=== PATIENT | female | born 1960 | race Caucasian/White ===

== ENCOUNTER 2018-12-03 12:24 | Emergency (ER) | payer BC, OTHER ==
--- OUTSIDE RECORDS SUMMARY | 2018-12-03 12:38 | XMS REPORT | Continuity of Care Document ---
:1960 External Reference #:[id number] Author Name Leena Banerjee MD Address [address] [place] [address] Care Team Providers Name Role Phone Leena Banerjee MD Care Team Information Television Anchor Unavailable Payers Date Identification Numbers Payment Provider Subscriber Effective: 2018 Policy Number: [id number] [facility] Plan Noreen Davis Group Number: [id number] [address] Group Name: [place] [address] PayID: [id number] Advance Directives Description No Information Available Problems Date Description Provider Status Onset: 02/01/2011 Moderate recurrent major depression Leena Banerjee MD Active Family History Date Family Member(s) Observation Comments Father Cancer, Pancreatic @63 Father Depression Father Ashd Father Heart Disease Mother Cancer, Uterine Mother Depression Mother Hypertension Mother Valvular Heart Disease Mother Heart Disease Second Daughter Depression Second Daughter Overdose 2007 Maternal Grandmother Cancer, Ovarian in her 90's Social History Type Date Description Comments Sex Unknown Marital Status Lives With patient lives with spouse and children Occupation works @ [employer] with [employer] Tobacco Use Start: Unknown Never Smoked Cigarettes ETOH Use Rarely consumes alcohol Tobacco Use Start: Unknown Patient has never smoked Smoking Status Reviewed: 11/27/18 Patient has never smoked Allergies, Adverse Reactions, Alerts Date Description Reaction Status Severity Comments 12/17/2004 Valium Active 10/29/2013 Lidoderm Active rash Medications Medication Date Status Form Strength Qnty SIG Indications Ordering Provider Albuterol Sulfate 11/27 Active Aerosol 108(90Bas 8gm 2 puffs J45.20 [place], HF e) use three Leena mcg/Act times a MD Abimael day as needed Desloratadine 11/27 Active Tablets 5mg 90tab take 1 J30.1 [facility] s tablet by Leena Varghese MD every day for allergy symptoms Fluconazole 11/27 Active Tablets 150mg 1tabs 1 by mouth [facility] x1 Leena Varghese MD Shingrix 05/22 Active Suspension 50mcg 2unit 2 shot Z00.00 [facility] Rec s series Leena Varghese MD Duloxetine HCL 04/[address] 60mg 90cap 1 by mouth F33.1 [facility] Part s every day Leena Varghese MD Advair Diskus 04/12 Active Aerosol 100-50mcg 60uni inhale 1 J45.20 [facility] /Dose ts puff by Leena mouth two MD Abimael times daily Nasacort Allergy 01/18 Active Aerosol 55mcg/Act 50.70 two sprays J30.1 [facility], 24HR 0ml each side Leena as needed MD Abimael Ibuprofen 10/22 Active Tablets 800mg 270ta one po 728.85 bs q8hrs with Leena food prn MD Abimael Vitamin D 02/04 Active Capsules 2000Unit 1 po qd E55.9 [facility] Leena Varghese MD Methylprednisolon 10/18 Hx TBPK 4mg 21uni dose pack R21 [place], ts , take [place] - pills as C RN MS 11/27 directed [employer] in pack, with food. Permethrin 10/18 Hx Cream 5% 120gm apply to R2 body from [place] - neck down, Doni RN MS 11/27 leave on 8 hours and xshower off,may repeat in 1 week if still itching Ventolin HFA 03/25 Hx Aerosol 108(90Bas 8gm 2 puffs J45.20 [facility] e) use three Leena - mcg/Act times a MD Abimael 11/27 day as needed Duloxetine HCL 01/[address] 30mg 30cap 1 by mouth F33.1 [facility] Part s every day Leena Varghese MD 04/12 Metaxalone 03/24 Hx Tablets 800mg 30tab take 10/18 723.1 [facility] s to 1 Leena - tablet by MD Abimael 09/15 three times a day as needed Voltaren 03/24 Hx Gel 1% 300gm apply 1 g 719.49 per joint Leena - four times MD Abimael 09/15 a day as needed Meclizine HCL 01/08 Hx Tablets 25mg 30tab /2-1 tab 386.11 s every 8 [facility] - hours, and JULIANO Marion MS 03/24 take 1- 2 tabs at night if needed for vertigo till sx are gone. No Work Rest Of 01/08 Hx 079.99 Fareed, Week Due To [facility]ness - JULIANO Marion MS 01/14 [employer] Fluconazole 09/23 Hx Tablets 150mg 1tabs 1 by mouth 616.10 [facility] x 1 Leena Varghese MD 01/08 Fluconazole 09/09 Hx Tablets 150mg 1tabs 1 by mouth [facility] x 1 Leena Varghese MD 09/23 Duloxetine HCL 03/[address] 60mg 90cap 1 by mouth F33.1 [facility] Part s every day Leena Varghese MD 01/18 Desloratadine 03/25 Hx Tablets 5mg 30tab 1 by mouth 477.8 lauri s every day Leena - as needed MD Abimael 11/22 [place] 3 03/25 Hx Capsules 1000mg 120ca 2 by mouth E78.2 lauri ps every day Leena - epa/dha MD Abimael 11/27 Cymbalta 11/[address] 60mg 90cap 1 po qd 296.32 [facility] Part s Leena Varghese MD 03/25 Lidoderm 10/22 Hx Patches 5% 30uni apply as 728.85 lauri ts directed Leena - 1-3 MD Abimael 10/29 patches x 12 hrs Metaxalone 10/22 Hx Tablets 800mg 30tab take 10/18 728.85 lauri s to 1 Leena - tablet by MD Abimael 09/23 mouth tid prn Duloxetine HCL 10/[address] 60mg 90cap 1 po qd 296.32 [facility] Part s Leena Varghese MD 11/23 Azithromycin 08/14 Hx Tablets 250mg 1Pack 2 tabs day one and 1 Leena - tab daily MD Abimael 10/22 till Ipratropium 08/08 Hx Solution 0.5-2.5(3 30uni use 1 vial 466.0 [place], [place]/Albuterol )mg/3ML ts in [facility] Sulfate - nebulizer C, RN MS 10/22 3 times daily as needed (duoneb) Ventolin HFA 08/08 Hx Aerosol 108(90Bas 1unit use tid as [place], e) s needed [place] - mcg/Act C RN MS 03/24 Naproxen 12/11 Hx Tablets 500mg 60tab take 1 729.1 s tablet by Leena - mouth MD Abimael 10/22 daily as needed with food Advair Diskus 07/27 Hx Aerosol 100-50mcg 1unit 1 puff bid [facility] /Dose s Leena Varghese MD 03/24 Cymbalta 06/[address] 60mg 30cap 1 po qd 296.32 lauri Part s Leena Varghese MD 10/22 Naproxen 04/24 Hx Tablets 500mg 60tab 1 po bid X 726.31 s 1WK Then Leena - bessie Varghese MD 08/07 Nortriptyline HCL 02/20 Hx Capsules 25mg 60cap 1-2 qhs 780.52 s prn Leena - Insomnia MD Abimael 08/07 Cymbalta 10/[address] 30mg 1 po qd 296.32 [place] Part Leena Varghese MD 06/26 Vitamin D 02/04 Hx Capsules [id number] 8caps 1 po qwk x [facility] 8 wks Leena Varghese MD 03/22 Cymbalta 02/[address] 60mg 90cap 1 po qd 296.32 [place] Part s Leena Varghese MD 10/01 Terazol 3 10/02 Hx Cream 0.8% QS Intravagin Lavonne al QHS X 3 Leena Varghese MD 03/22 Amoxicillin 09/15 Hx Tablets 875mg 20tab 1 po bid 462 s Jewell Marion RN MS 09/28 Celebrex 02/09 Hx Capsules 200mg 90cap 1 po qd 726.31 s prn Leena Varghese MD 04/27 Cymbalta 12/[address] 30mg 90cap 1 po qd 296.32 Part s Leena Varghese MD 02/01 Meloxicam 10/07 Hx Tablets 7.5mg 60tab take 1-2 726.31 [facility] s tablet by Leena - mouth MD Abimael 11/07 every day for pain Promethazine HCL 08/15 Hx Tablets 25mg 5tabs 1 po tid 009.0 prn Leena Varghese MD 10/07 cymbalta 02/[address] 60mg 90cap 1 po qd 729.1 Part s Jewell Marion RN MS 12/26 Darvocet-N 100 05/28 Hx Tablets 100 30tab 1 tabs po s q 4 hours [facility] - bessie Marion RN MS 04/27 Famvir 05/22 Hx Tablets 500mg 21tab One PO tid 053.9 s X 7 Days Jewell Marion RN MS 11/24 Sertraline HCL 05/09 Hx Tablets 50mg 90tab 1 Q hs 296.31 s Jewell Marion RN MS 08/15 Xanax 05/09 Hx Tablets 0.25mg 10tab 1 tab po 787.91 [place] s tid prn Jewell Marion RN MS 04/27 Clarinex 03/23 Hx Tablets 5mg 30tab 1 by mouth 477.8 lauri s every day Leena - as needed MD Abimael 03/25 Nasocort Nasal 03/23 Hx 1Bott 2 sprays J30.2 [place], [place] le each Leena - nostril MD Abimael 01/18 every day Advair Diskus 10/06 Hx Inhaler 100mcg;50 1unit 1 puff bid mcg s Jewell Marion RN MS 07/27 Amitriptyline 12/17 Hx Tablets 50mg 0tabs 1 po qhs Jewell Marion RN MS 12/17 Albuterol 12/17 Hx Aerosol 90mcg/Dos 17gm 2 puffs , e q4h prn Jewell Marion RN MS 08/08 Amitriptyline 12/17 Hx Tablets 25mg 90tab 2-3 tabs s hs prn Jewell Marion RN MS 12/17 Jennie 12/17 Hx Tablets 180mg 30tab 1 PO qd s Jewell Marion RN MS 03/23 Nortriptyline 12/17 Hx Capsules 25mg 90cap 1-3 tabs s hs prkathleen Marion RN MS 06/14 Medications Administered in Office Medication Date Status Form Strength Qnty SIG Indications Ordering Provider Albuterol Up Administered Injection [place], To 2.5mg & 013 Jewell Marion Ipatropium RN MS [place] Up To 0.5mg Non-Compd Depo Medrol 40 Administered Injection [place], MG 010 Leena Varghese MD Phenergan(Prom Administered Injection [place], ethazine 009 Leena Hci)Up To 50 MD Abimael MG Immunizations CPT Code Status Date Vaccine Lot # [id number] Given 11/24/2018 Typhoid Vaccine, Capsular Polysaccharide For Intramuscular Use 74623 Given 10/26/2018 Hepatitis A Vaccine, Adult Dosage 55080 Given 06/27/2018 Influenza Vac, Quadrivalent, Split, 0.5mL Dosage, [place] Use 59392 Given 05/22/2018 Pneumococcal 23 Immunization Adult Or [id number] Immunosuppressed Patient 30356 Given 10/17/2017 Influenza Vac, Quadrivalent, Split, 0.5mL Dosage, [place] Use 21191 Given 07/26/2016 Influenza Vac, Quadrivalent, Split, 0.5mL Dosage, Im Use 10641 Given 07/17/2015 Influenza Virus Vaccine,Quadrivalent,Split,Preserv [place], 0.5mL,[place] [address] Given 01/15/2014 Tdap (Adacel) Ages 7 And Above Only [id number] 48690 Given 12/29/2004 Immunization Td 7 Yrs Or Older Vital Signs Date Vital Result Comment 11/27/2018 4:32pm Weight 133.00 lb Heart Rate 76 /min BP Systolic 102 mmHg BP Diastolic 60 mmHg Height 64.5 inches 5'4.50" BMI (Body Mass Index) 22.5 kg/m2 10/18/2018 1:24pm Weight 134.25 lb Heart Rate 78 /min BP Systolic 103 mmHg BP Diastolic 62 mmHg Height 64.5 inches 5'4.50" BMI (Body Mass Index) 22.7 kg/m2 05/22/2018 4:31pm Weight 130.00 lb Heart Rate 76 /min BP Systolic 94 mmHg BP Diastolic 60 mmHg Height 64.5 inches 5'4.50" BMI (Body Mass Index) 22.0 kg/m2 11/22/2017 3:36pm Weight 132.00 lb Heart Rate 80 /min BP Systolic 104 mmHg BP Diastolic 66 mmHg Height 64.5 inches 5'4.50" BMI (Body Mass Index) 22.3 kg/m2 05/23/2017 4:04pm Weight 131.00 lb Heart Rate 76 /min BP Systolic 110 mmHg BP Diastolic 64 mmHg Height 64.5 inches 5'4.50" BMI (Body Mass Index) 22.1 kg/m2 11/22/2016 4:31pm Weight 129.00 lb Heart Rate 80 /min BP Systolic 92 mmHg BP Diastolic 62 mmHg Height 64.5 inches 5'4.50" BMI (Body Mass Index) 21.8 kg/m2 04/12/2016 4:29pm Weight 123.00 lb Heart Rate 76 /min BP Systolic 110 mmHg BP Diastolic 62 mmHg Height 64.5 inches 5'4.50" BMI (Body Mass Index) 20.8 kg/m2 01/19/2016 4:26pm Weight 121.00 lb Heart Rate 76 /min BP Systolic 112 mmHg BP Diastolic 70 mmHg Height 64.5 inches 5'4.50" BMI (Body Mass Index) 20.4 kg/m2 09/15/2015 4:24pm Weight 119.00 lb Heart Rate 68 /min BP Systolic 108 mmHg BP Diastolic 60 mmHg Height 64.5 inches 5'4.50" BMI (Body Mass Index) 20.1 kg/m2 03/24/2015 4:32pm Weight 124.00 lb Heart Rate 60 /min BP Systolic 100 mmHg BP Diastolic 62 mmHg Height 64.5 inches 5'4.50" BMI (Body Mass Index) 21.0 kg/m2 01/08/2015 8:48am Body Temperature 99.7 F Weight 125.00 lb Heart Rate 96 /min BP Systolic 114 mmHg BP Diastolic 70 mmHg Height 64.5 inches 5'4.50" BMI (Body Mass Index) 21.1 kg/m2 09/23/2014 4:51pm Weight 127.00 lb Heart Rate 64 /min BP Systolic 112 mmHg BP Diastolic 64 mmHg Height 64.5 inches 5'4.50" BMI (Body Mass Index) 21.5 kg/m2 03/25/2014 5:21pm Weight 128.00 lb Heart Rate 68 /min BP Systolic 108 mmHg BP Diastolic 60 mmHg Height 64.5 inches 5'4.50" BMI (Body Mass Index) 21.6 kg/m2 10/22/2013 4:53pm Weight 128.00 lb Heart Rate 64 /min BP Systolic 108 mmHg BP Diastolic 66 mmHg Height 64.5 inches 5'4.50" BMI (Body Mass Index) 21.6 kg/m2 08/08/2013 2:59pm Body Temperature 98.3 F Weight 127.00 lb Heart Rate 71 /min BP Systolic 112 mmHg BP Diastolic 60 mmHg 05/21/2013 4:33pm Weight 130.00 lb Heart Rate 64 /min BP Systolic 116 mmHg BP Diastolic 64 mmHg Height 64.5 inches 5'4.50" BMI (Body Mass Index) 22.0 kg/m2 01/01/2013 3:23pm Weight 126.00 lb Heart Rate 76 /min BP Systolic 94 mmHg BP Diastolic 64 mmHg Height 64.5 inches 5'4.50" BMI (Body Mass Index) 21.3 kg/m2 12/11/2012 4:33pm Weight 127.00 lb Heart Rate 68 /min BP Systolic 102 mmHg BP Diastolic 62 mmHg Height 64.5 inches 5'4.50" BMI (Body Mass Index) 21.5 kg/m2 08/07/2012 4:19pm Weight 126.00 lb Heart Rate 68 /min BP Systolic 92 mmHg BP Diastolic 60 mmHg Height 64.5 inches 5'4.50" BMI (Body Mass Index) 21.3 kg/m2 06/26/2012 4:46pm Weight 122.00 lb Heart Rate 80 /min BP Systolic 110 mmHg BP Diastolic 64 mmHg Height 64.5 inches 5'4.50" BMI (Body Mass Index) 20.6 kg/m2 04/24/2012 3:51pm Weight 125.00 lb Heart Rate 76 /min BP Systolic 90 mmHg BP Diastolic 58 mmHg Height 64.5 inches 5'4.50" BMI (Body Mass Index) 21.1 kg/m2 02/21/2012 4:04pm Weight 123.00 lb Heart Rate 68 /min BP Systolic 96 mmHg BP Diastolic 60 mmHg Height 64.5 inches 5'4.50" BMI (Body Mass Index) 20.8 kg/m2 10/01/2011 2:58pm Weight 124.00 lb Heart Rate 76 /min BP Systolic 96 mmHg BP Diastolic 58 mmHg Height 64.5 inches 5'4.50" BMI (Body Mass Index) 21.0 kg/m2 08/17/2011 10:30am Body Temperature 99.1 F Weight 123.00 lb Heart Rate 83 /min BP Systolic 105 mmHg BP Diastolic 66 mmHg 03/22/2011 6:18pm Weight 123.00 lb Heart Rate 76 /min BP Systolic 110 mmHg BP Diastolic 72 mmHg 02/01/2011 6:32pm Weight 123.00 lb Heart Rate 72 /min BP Systolic 105 mmHg BP Diastolic 75 mmHg 09/28/2010 6:07pm Weight 123.00 lb Heart Rate 60 /min BP Systolic 110 mmHg BP Diastolic 62 mmHg 09/15/2010 2:11pm Body Temperature 97.4 F Weight 125.00 lb Heart Rate 76 /min BP Systolic 96 mmHg BP Diastolic 60 mmHg 05/19/2010 2:57pm Weight 121.00 lb Heart Rate 76 /min BP Systolic 92 mmHg BP Diastolic 58 mmHg 04/27/2010 5:33pm Weight 124.00 lb Heart Rate 66 /min BP Systolic 100 mmHg BP Diastolic 57 mmHg 02/09/2010 6:46pm Weight 123.00 lb Heart Rate 64 /min BP Systolic 114 mmHg BP Diastolic 70 mmHg 11/07/2009 11:25am Weight 123.00 lb Heart Rate 84 /min BP Systolic 98 mmHg BP Diastolic 58 mmHg 10/07/2009 3:43pm Weight 123.00 lb With Boots Heart Rate 64 /min BP Systolic 96 mmHg BP Diastolic 62 mmHg 08/15/2009 3:26pm Body Temperature 98.0 F Weight 114.00 lb Heart Rate 76 /min BP Systolic 90 mmHg BP Diastolic 60 mmHg 02/04/2009 3:14pm Weight 120.00 lb Heart Rate 73 /min BP Systolic 92 mmHg BP Diastolic 58 mmHg 01/07/2009 2:36pm Weight 120.00 lb Heart Rate 68 /min BP Systolic 97 mmHg BP Diastolic 65 mmHg 05/22/2008 2:37pm Weight 115.00 lb Heart Rate 85 /min BP Systolic 89 mmHg BP Diastolic 57 mmHg Height 64.50 inches 5'4.50" BMI (Body Mass Index) 19.4 kg/m2 05/01/2008 9:07am Weight 114.00 lb Heart Rate 70 /min BP Systolic 92 mmHg BP Diastolic 63 mmHg Height 64.50 inches 5'4.50" BMI (Body Mass Index) 19.3 kg/m2 09/14/2007 8:05am Weight 118.00 lb Heart Rate 73 /min BP Systolic 88 mmHg BP Diastolic 60 mmHg Height 64.50 inches 5'4.50" BMI (Body Mass Index) 19.9 kg/m2 06/14/2007 1:59pm Weight 157.00 lb Heart Rate 57 /min BP Systolic 169 mmHg BP Diastolic 75 mmHg Respiratory Rate 20 /min Height 64.50 inches 5'4.50" BMI (Body Mass Index) 26.5 kg/m2 06/14/2007 8:06am Body Temperature 98.1 F Weight 114.00 lb Heart Rate 73 /min BP Systolic 100 mmHg BP Diastolic 63 mmHg Respiratory Rate 20 /min Height 64.50 inches 5'4.50" BMI (Body Mass Index) 19.3 kg/m2 05/09/2007 9:08am Weight 113.00 lb Heart Rate 80 /min BP Systolic 100 mmHg BP Diastolic 80 mmHg Height 64.50 inches 5'4.50" BMI (Body Mass Index) 19.1 kg/m2 03/23/2007 8:24am Weight 116.00 lb Heart Rate 80 /min BP Systolic 92 mmHg BP Diastolic 60 mmHg Height 64.50 inches 5'4.50" BMI (Body Mass Index) 19.6 kg/m2 03/03/2006 8:30am Weight 117.00 lb Heart Rate 80 /min BP Systolic 84 mmHg BP Diastolic 60 mmHg Height 64.50 inches 5'4.50" BMI (Body Mass Index) 19.8 kg/m2 12/17/2004 8:27am Weight 125.00 lb Heart Rate 88 /min BP Systolic 102 mmHg BP Diastolic 68 mmHg Urine Dipstick - Blood NEGATIVE Urine Dipstick - Protein NEGATIVE Urine Dipstick - Glucose NEGATIVE Results Test Date Facility Test Result H/L Range Note Laboratory test 10/18/2018 Done In [facility] 1 Strep NEG Negative finding Screen (In-House) CBC with Auto 10/18/2018 [facility] WBC 5.6 K/uL 4.1-11.0 Diff-fcmg RBC 4.29 M/uL 4.00-5.40 Hemoglobin 13.7 gm/dL 12.0-16.0 Hematocrit 39.7 % 36.0-47.0 MCV 92.6 fL 80.0-97.0 MCH 32.0 pg 27.0-32.0 MCHC 34.5 g/dL 32.0-36.0 RDW 12.9 % 11.5-14.5 PLT Count 260 K/ul 140-400 MPV 6.6 FL Low 7.1-10.7 Neutrophil 43.3 % 35.0-75.0 Lymphocyte 35.6 % 16.0-52.0 Monocyte 12.3 % High 2.0-10.0 Eosinophil 7.9 % High 0.0-5.0 Basophil 0.9 % 0.0-4.0 Abs Neutrophils 2.4 K/uL 2.1-8.0 Abs Lymphocytes 2.0 K/uL 0.8-5.5 Abs Monocytes 0.7 K/uL 0.1-1.0 Abs Eosinophils 0.4 K/uL 0.0-0.5 Abs Basophils 0.0 K/uL 0.0-0.3 Lyme Igm/Igg AB -RL 10/18/2018 [facility] Lyme Igm/Igg AB @ NEGATIVE (Neg) 1 Comprehensive Met 06/22/2018 [facility] Sodium 141 mmol/L 135-146 2 Panel-FCMG Potassium 4.1 mmol/L 3.5-5.2 Chloride# 102 mmol/L 97-110 3 Carbon Dioxide 31 mmol/L 24-34 Glucose 86 mg/dL 70-105 BUN 13 mg/dL 6-26 Creatinine 0.9 mg/dL 0.5-1.4 Calcium 9.3 mg/dL 8.5-10.2 Total Protein 6.4 g/dL 6.0-8.0 Albumin 4.2 g/dL 3.6-4.9 Globulin 2.2 g/dL 2.0-3.5 A/G Ratio 1.9 Ratio 1.0-2.2 Total Bilirubin 0.7 mg/dL 0.1-1.3 Alkaline Phosphatase 61 U/L 24-140 Alt 12 U/L 3-42 Ast 19 U/L 8-42 Roselyn Egfr >60 >60 4 Non Roselyn Egfr >60 >60 5 Anion Gap 8 mmol/L 5-15 6 Lipid 06/22/2018 [facility] Cholesterol 224 mg/dL High 50-199 Triglycerides 91 mg/dL 30-200 HDL 63 mg/dL 35-85 7 Chol/ HDL Ratio 3.5 ratio Low 3.7-5.6 VLDL 18 mg/dL 2-29 LDL (Calc) 143 mg/dL High 20-99 8 Laboratory test finding 06/22/2018 [facility] Vitamin D 25 Hydroxy 35 ng/mL 30-100 9 CBC With Auto Diff 08/10/2017 [facility] WBC 4.6 K/uL 4.1-11.0 RBC 4.17 M/uL 4.00-5.40 Hemoglobin 13.5 gm/dL 12.0-16.0 Hematocrit 38.7 % 36.0-47.0 MCV 93.0 fL 80.0-97.0 MCH 32.3 pg High 27.0-32.0 MCHC 34.8 g/dL 32.0-36.0 RDW 12.7 % 11.5-14.5 PLT Count 255 K/ul 140-400 MPV 6.8 FL Low 7.1-10.7 Neutrophil 51.3 % 35.0-75.0 Lymphocyte 29.6 % 16.0-52.0 Monocyte 9.3 % 2.0-10.0 Eosinophil 8.4 % High 0.0-5.0 Basophil 1.4 % 0.0-4.0 Abs Neutrophils 2.3 K/uL 2.1-8.0 Abs Lymphocytes 1.4 K/uL 0.8-5.5 Abs Monocytes 0.4 K/uL 0.1-1.0 Abs Eosinophils 0.4 K/uL 0.0-0.5 Abs Basophils 0.1 K/uL 0.0-0.3 CBC With Auto Diff 06/10/2017 [facility] WBC 4.2 K/uL 4.1-11.0 10 RBC 4.37 M/uL 4.00-5.40 Hemoglobin 13.4 gm/dL 12.0-16.0 Hematocrit 40.8 % 36.0-47.0 MCV 93.3 fL 80.0-97.0 MCH 30.7 pg 27.0-32.0 MCHC 32.9 g/dL 32.0-36.0 RDW 12.6 % 11.5-14.5 PLT Count 252 K/ul 140-400 Neutrophil 46.7 % 35.0-75.0 Lymphocyte 32.4 % 16.0-52.0 Monocyte 9.8 % 2.0-10.0 Eosinophil 10.0 % High 0.0-5.0 Basophil 1.1 % 0.0-4.0 Abs Neutrophils 2.0 K/uL Low 2.1-8.0 Abs Lymphocytes 1.4 K/uL 0.8-5.5 Abs Monocytes 0.4 K/uL 0.1-1.0 Abs Eosinophils 0.4 K/uL 0.0-0.5 Abs Basophils 0.0 K/uL 0.0-0.3 Comprehensive Met Panel-FCMG 06/10/2017 [facility] Sodium 139 mmol/L 135- 146 11 Potassium 5.1 mmol/L 3.5-5.2 Chloride# 101 mmol/L 97-110 12 Carbon Dioxide 30 mmol/L 24-34 Glucose 87 mg/dL 70-105 BUN 9 mg/dL 6-26 Creatinine 0.9 mg/dL 0.5-1.4 Calcium 9.5 mg/dL 8.5-10.2 Total Protein 6.5 g/dL 6.0-8.0 Albumin 4.3 g/dL 3.6-4.9 Globulin 2.2 g/dL 2.0-3.5 A/G Ratio 2.0 Ratio 1.0-2.2 Total Bilirubin 0.7 mg/dL 0.1-1.3 Alkaline Phosphatase 78 U/L 24-140 Alt 11 U/L 3-42 Ast 19 U/L 8-42 Roselyn Egfr >60 >60 13 Non Roselyn Egfr >60 >60 14 Anion Gap 8 mmol/L 7-16 15 Lipid 06/10/2017 [facility] Cholesterol 226 mg/dL High 50-199 Triglycerides 93 mg/dL 30-200 HDL 64 mg/dL 35-85 16 Chol/ HDL Ratio 3.6 ratio Low 3.7-5.6 VLDL 19 mg/dL 2-29 LDL (Calc) 144 mg/dL High 20-99 17 Laboratory test finding 06/10/2017 [facility] Vit D25oh 46 ng/mL 31-100 TSH 1.93 uIU/mL 0.35-4.94 Free T4 0.69 ng/dL Low 0.70-1.48 CBC With Auto Diff 04/16/2016 [facility] WBC 4.2 K/uL 4.1-11.0 RBC 4.45 M/uL 4.00-5.40 Hemoglobin 14.1 gm/dL 12.0-16.0 Hematocrit 41.0 % 36.0-47.0 MCV 92.1 fL 80.0-97.0 MCH 31.5 pg 27.0-32.0 MCHC 34.3 g/dL 32.0-36.0 RDW 12.9 % 11.5-14.5 PLT Count 257 K/ul 140-400 Neutrophil 43.6 % 35.0-75.0 Lymphocyte 35.6 % 16.0-52.0 Monocyte 11.5 % High 2.0-10.0 Eosinophil 7.3 % High 0.0-5.0 Basophil 2.0 % 0.0-4.0 Abs Neutrophils 1.9 K/uL Low 2.1-8.0 Abs Lymphocytes 1.5 K/uL 0.8-5.5 Abs Monocytes 0.5 K/uL 0.1-1.0 Abs Eosinophils 0.3 K/uL 0.0-0.5 Abs Basophils 0.1 K/uL 0.0-0.3 Comprehensive Metabolic (CMP) 04/16/2016 [facility] Sodium 139 mmol/L 134- 142 Potassium 4.7 mmol/L 3.5-5.2 Chloride 101 mmol/L 97-109 Carbon Dioxide 34 mmol/L 24-34 Glucose 103 mg/dL 70-105 BUN 13 mg/dL 6-26 Creatinine 0.9 mg/dL 0.5-1.4 Calcium 9.9 mg/dL 8.5-10.2 Total Protein 7.3 g/dL 6.0-8.0 Albumin 4.5 g/dL 3.6-4.9 Globulin 2.8 g/dL 2.0-3.5 A/G Ratio 1.6 Ratio 1.0-2.2 Total Bilirubin 0.7 mg/dL 0.1-1.3 Alkaline Phosphatase 70 U/L 24-140 Alt 11 U/L 3-42 Ast 15 U/L 8-42 Anion Gap 9 mmol/L 6-14 Roselyn Egfr >60 >60 18 Non Roselyn Egfr >60 >60 19 Lipid 04/16/2016 [facility] Cholesterol 245 mg/dL High 50-199 Triglycerides 117 mg/dL 30-200 HDL 64 mg/dL 35-85 20 Chol/ HDL Ratio 3.8 ratio 3.7-5.6 VLDL 23 mg/dL 2-29 LDL (Calc) 158 mg/dL High 20-99 21 Laboratory test finding 04/16/2016 [facility] Vit D,25 Hydroxy 47 ng/mL 31- 100 Lipid Treatment 07/25/2015 [facility] Cholesterol 204 mg/dL High 50-199 Triglycerides 108 mg/dL 30-200 HDL 52 mg/dL 35-85 22 Chol/ HDL Ratio 3.9 ratio 3.7-5.6 VLDL 22 mg/dL 2-29 LDL (Calc) 130 mg/dL High 20-99 23 Alt 9 U/L 3-42 Ast 13 U/L 8-42 CBC With Auto Diff 03/31/2015 [facility] WBC 4.3 K/uL 4.1-11.0 24 RBC 4.51 M/uL 4.00-5.40 Hemoglobin 14.2 gm/dL 12.0-16.0 Hematocrit 41.9 % 36.0-47.0 MCV 93.0 fL 80.0-97.0 MCH 31.6 pg 27.0-32.0 MCHC 33.9 g/dL 32.0-36.0 RDW 12.4 % 11.5-14.5 PLT Count 256 K/ul 140-400 Neutrophil 41.6 % 35.0-75.0 Lymphocyte 40.4 % 16.0-52.0 Monocyte 12.4 % High 2.0-10.0 Eosinophil 4.2 % 0.0-5.0 Basophil 1.4 % 0.0-4.0 Abs Neutrophils 1.8 K/uL Low 2.1-8.0 Abs Lymphocytes 1.7 K/uL 0.8-5.5 Abmon 0.5 K/uL 0.1-1.0 Abs Eosinophils 0.2 K/uL 0.0-0.5 Abs Basophils 0.1 K/uL 0.0-0.3 Comprehensive Metabolic (CMP) 03/31/2015 [facility] Sodium 138 mmol/L 134- 142 Potassium 4.2 mmol/L 3.5-5.2 Chloride 102 mmol/L 97-109 Carbon Dioxide 30 mmol/L 24-34 Glucose 91 mg/dL 70-105 BUN 14 mg/dL 6-26 Creatinine 0.8 mg/dL 0.5-1.4 Calcium 9.4 mg/dL 8.5-10.2 Total Protein 7.1 g/dL 6.0-8.0 Albumin 4.5 g/dL 3.6-4.9 Globulin 2.6 g/dL 2.0-3.5 A/G Ratio 1.7 Ratio 1.0-2.2 Total Bilirubin 0.6 mg/dL 0.1-1.3 Alkaline Phosphatase 51 U/L 24-140 Alt 15 U/L 3-42 Ast 17 U/L 8-42 Anion Gap 10 mmol/L 6-14 Roselyn Egfr >60 >60 25 Non Roselyn Egfr >60 >60 26 Lipid 03/31/2015 [facility] Cholesterol 248 mg/dL High 50-199 Triglycerides 98 mg/dL 30-200 HDL 56 mg/dL 35-85 27 Chol/ HDL Ratio 4.4 ratio 3.7-5.6 VLDL 20 mg/dL 2-29 LDL (Calc) 172 mg/dL High 20-99 28 Laboratory test finding 03/31/2015 [facility] Vit D,25 Hydroxy 62 ng/mL 31- 100 Esr 13 mm/hr 0-20 TSH 2.69 uIU/mL 0.35-4.94 Affirm 09/23/2014 [facility] Trichomonas Vaginalis Negative Negative Gardnerella Vaginalis Negative Negative Sapna Species Negative Negative Lipid Treatment 07/04/2014 [facility] Cholesterol 234 mg/dL High 50-199 29 Triglycerides 101 mg/dL 30-200 HDL 64 mg/dL 35-85 30 Chol/ HDL Ratio 3.7 ratio 3.7-5.6 VLDL 20 mg/dL 2-29 LDL (Calc) 150 mg/dL High 20-99 31 Alt 15 U/L 3-42 Ast 19 U/L 8-42 CBC With Auto Diff 04/11/2014 [facility] WBC 5.2 K/uL 4.1-11.0 RBC 4.36 M/uL 4.00-5.40 Hemoglobin 13.7 gm/dL 12.0-16.0 Hematocrit 39.9 % 36.0-47.0 MCV 91.5 fL 80.0-97.0 MCH 31.4 pg 27.0-32.0 MCHC 34.3 g/dL 32.0-36.0 RDW 12.9 % 11.5-14.5 PLT Count 267 K/ul 140-400 Neutrophil 55.6 % 35.0-75.0 Lymphocyte 28.1 % 16.0-52.0 Monocyte 11.5 % High 2.0-10.0 Eosinophil 3.9 % 0.0-5.0 Basophil 0.9 % 0.0-4.0 Abs Neutrophils 2.9 K/uL 2.1-8.0 Abs Lymphocytes 1.5 K/uL 0.8-5.5 Abmon 0.6 K/uL 0.1-1.0 Abs Eosinophils 0.2 K/uL 0.0-0.5 Abs Basophils 0.0 K/uL 0.0-0.3 Comprehensive Metabolic (CMP) 04/11/2014 [facility] Sodium 139 mmol/L 134- 142 Potassium 4.2 mmol/L 3.5-5.2 Chloride 105 mmol/L 97-109 Carbon Dioxide 31 mmol/L 24-34 Glucose 94 mg/dL 70-105 BUN 12 mg/dL 6-26 Creatinine 0.8 mg/dL 0.5-1.4 Calcium 9.3 mg/dL 8.5-10.2 Total Protein 6.6 g/dL 6.0-8.0 Albumin 4.1 g/dL 3.6-4.9 Globulin 2.5 g/dL 2.0-3.5 A/G Ratio 1.6 Ratio 1.0-2.2 Total Bilirubin 0.6 mg/dL 0.1-1.3 Alkaline Phosphatase 51 U/L 24-140 Alt 14 U/L 3-42 Ast 19 U/L 8-42 Anion Gap 7 mmol/L 6-14 Roselyn Egfr >60 >60 32 Non Roselyn Egfr >60 >60 33 Laboratory test finding 04/11/2014 [facility] Esr 21 mm/hr High 0-20 Lipid 04/11/2014 [facility] Cholesterol 247 mg/dL High 50-199 Triglycerides 97 mg/dL 30-200 HDL 63 mg/dL 35-85 34 Chol/ HDL Ratio 3.9 ratio 3.7-5.6 VLDL 19 mg/dL 2-29 LDL (Calc) 165 mg/dL High 20-99 35 Laboratory test finding 04/11/2014 [facility] TSH 2.28 uIU/mL 0.34-5.60 Vitamin B12 804 pg/mL 180-914 Vit D,25 Hydroxy 58 ng/mL 31-100 Hepatitis C Virus Antibody Non reactive Non reactive Laboratory test 12/27/2012 [facility] Rheumatoid Factor <10.0 IU/mL 0.0- 10.0 36 finding Kristin Screen Neg Neg Laboratory test finding 12/27/2012 [facility] CCP Antibody Igg 5 37 Homocysteine 7.0 umol/L (5.0-18.0) 38 Laboratory test finding 12/15/2012 [facility] Esr 20 mm/hr 0-20 39 CPK 29 U/L 12-199 CRP (C-Reactive) 0.93 mg/dL High 0.00-0.75 CBC With Auto Diff 12/15/2012 [facility] WBC 7.1 K/uL 4.1-11.0 RBC 3.93 M/uL Low 4.00-5.40 Hemoglobin 12.3 gm/dL 12.0-16.0 Hematocrit 37.7 % 36.0-47.0 MCV 95.9 fL 80.0-97.0 MCH 31.4 pg 27.0-32.0 MCHC 32.7 g/dL 32.0-36.0 RDW 12.7 % 11.5-14.5 PLT Count 196 K/ul 140-400 Neutrophil 68.4 % 35.0-75.0 Lymphocyte 16.4 % 16.0-52.0 Monocyte 10.8 % High 2.0-10.0 Eosinophil 3.6 % 0.0-5.0 Basophil 0.8 % 0.0-4.0 Abs Neutrophils 4.8 K/uL 2.1-8.0 Abs Lymphocytes 1.2 K/uL 0.8-5.5 Abs Monocytes 0.8 K/uL 0.1-1.0 Abs Eosinophils 0.3 K/uL 0.0-0.5 Abs Basophils 0.1 K/uL 0.0-0.3 Laboratory test finding 12/15/2012 [facility] TSH 1.48 uIU/mL 0.34-5.60 Comprehensive Metabolic (CMP) 12/15/2012 [facility] Sodium 139 mmol/L 134- 142 Potassium 4.9 mmol/L 3.5-5.2 Chloride 104 mmol/L 97-109 Carbon Dioxide 32 mmol/L 24-34 Glucose 83 mg/dL 70-105 BUN 14 mg/dL 6-26 Creatinine 0.7 mg/dL 0.5-1.4 Calcium 9.1 mg/dL 8.5-10.2 Total Protein 6.4 g/dL 6.0-8.0 Albumin 4.1 g/dL 3.6-4.9 Globulin 2.3 g/dL 2.0-3.5 A/G Ratio 1.8 Ratio 1.0-2.2 Total Bilirubin 0.5 mg/dL 0.1-1.3 Alkaline Phosphatase 43 U/L 24-140 Alt 10 U/L 3-42 Ast 14 U/L 8-42 Anion Gap 8 mmol/L 6-14 Roselyn Egfr >60 >60 40 Non Roselyn Egfr >60 >60 41 Lipid 12/15/2012 [facility] Cholesterol 212 mg/dL High 50-199 Triglycerides 100 mg/dL 30-200 HDL 48 mg/dL 35-85 42 Chol/ HDL Ratio 4.4 ratio 3.7-5.6 VLDL 20 mg/dL 2-29 LDL (Calc) 144 mg/dL High 20-129 43 Non HDL Cholesterol 164 mg/dL High 20-129 44 CBC With Auto Diff 03/27/2012 [facility] WBC 4.9 K/uL 4.1-11.0 45 RBC 4.18 M/uL 4.00-5.40 Hemoglobin 13.5 gm/dL 12.0-16.0 Hematocrit 38.0 % 36.0-47.0 MCV 90.9 fL 80.0-97.0 MCH 32.4 pg High 27.0-32.0 MCHC 35.6 g/dL 32.0-36.0 RDW 12.7 % 11.5-14.5 PLT Count 233 K/ul 140-400 Neutrophil 46.0 % 35.0-75.0 Lymphocyte 32.0 % 16.0-52.0 Monocyte 13.7 % High 2.0-10.0 Eosinophil 6.9 % High 0.0-5.0 Basophil 1.4 % 0.0-4.0 Abs Neutrophils 2.2 K/uL 2.1-8.0 Abs Lymphocytes 1.6 K/uL 0.8-5.5 Abs Monocytes 0.7 K/uL 0.1-1.0 Abs Eosinophils 0.3 K/uL 0.0-0.5 Abs Basophils 0.1 K/uL 0.0-0.3 Comprehensive Metabolic (CMP) 03/27/2012 [facility] Sodium 137 mmol/L 134- 142 Potassium 5.2 mmol/L 3.5-5.2 Chloride 104 mmol/L 97-109 Carbon Dioxide 30 mmol/L 24-34 Glucose 90 mg/dL 70-105 BUN 10 mg/dL 6-26 Creatinine 0.7 mg/dL 0.5-1.4 Calcium 9.3 mg/dL 8.5-10.2 Total Protein 6.7 g/dL 6.0-8.0 Albumin 4.2 g/dL 3.6-4.9 Globulin 2.5 g/dL 2.0-3.5 A/G Ratio 1.7 Ratio 1.0-2.2 Total Bilirubin 0.6 mg/dL 0.1-1.3 Alkaline Phosphatase 53 U/L 24-140 Alt 11 U/L 3-42 Ast 14 U/L 8-42 Anion Gap 8 mmol/L 6-14 Roselyn Egfr >60 >60 46 Non Roselyn Egfr >60 >60 47 Laboratory test finding 03/27/2012 [facility] Hemoglobin A1c 5.3 % 4.1-5.9 TSH 1.73 uIU/mL 0.34-5.60 Vit D,25 Hydroxy 81 ng/mL 31-100 Lipid 03/27/2012 [facility] Cholesterol 216 mg/dL High 50-199 Triglycerides 134 mg/dL 30-200 HDL 54 mg/dL 35-85 48 Chol/ HDL Ratio 4.0 ratio 3.7-5.6 VLDL 27 mg/dL 2-29 LDL (Calc) 135 mg/dL High 20-129 49 Laboratory test finding 10/05/2011 [facility] Vit D,25 Hydroxy 55 ng/mL 31- 100 50 Laboratory test finding 04/12/2011 [facility] Vit D,25 Hydroxy 51 ng/mL 31- 100 51 CBC With Auto Diff 02/01/2011 [facility] WBC 8.3 K/uL 4.1-11.0 52 RBC 4.48 M/uL 4.00-5.40 Hemoglobin 14.5 gm/dL 12.0-16.0 Hematocrit 41.9 % 36.0-47.0 MCV 93.4 fL 80.0-97.0 MCH 32.3 pg High 27.0-32.0 MCHC 34.5 g/dL 32.0-36.0 RDW 12.5 % 11.5-14.5 PLT Count 259 K/ul 140-400 Neutrophil 57.3 % 35.0-75.0 Lymphocyte 29.0 % 16.0-52.0 Monocyte 10.1 % High 2.0-10.0 Eosinophil 3.0 % 0.0-5.0 Basophil 0.6 % 0.0-4.0 Abs Neutrophils 4.8 K/uL 2.1-8.0 Abs Lymphocytes 2.4 K/uL 0.8-5.5 Abs Monocytes 0.8 K/uL 0.1-1.0 Abs Eosinophils 0.2 K/uL 0.0-0.5 Abs Basophils 0.1 K/uL 0.0-0.3 Laboratory test finding 02/01/2011 [facility] TSH 4.25 uIU/mL 0.34-5.60 Vit D,25 Hydroxy 17 ng/mL Low 31-100 Lipid TX Panel 09/23/2010 [facility] (Do not Use) Ast 17 U/L 12-40 53 [facility] [address] [phone] Alt 15 U/L 5-45 Cholesterol 213 mg/dL High 50-199 Triglycerides 129 mg/dL 10-150 HDL 48 mg/dL 35-85 54 LDL (Calc) 139 mg/dL High 20-129 55 Chol/HDL Ratio 4.4 Ratio 3.7-5.6 56 VLDL 26 mg/dL 2-29 Lipid Panel 04/16/2010 [facility] (Do not Use) Cholesterol 238 mg/dL High 50-199 57 [facility] [place] [address] [phone] Triglycerides 112 mg/dL 10-150 HDL 57 mg/dL 35-85 58 Chol/HDL Ratio 4.2 Ratio 3.7-5.6 59 VLDL 22 mg/dL 2-29 LDL (Calc) 159 mg/dL High 20-129 60 Laboratory test 04/16/2010 [facility] (Do not Use) TSH 1.94 uIU/ml 0.34 -5.60 finding [facility] [place] [address] [phone] CMP 04/16/2010 [facility] (Do not Use) Sodium 143 mmol/L 135-144 [facility] [place] [address] [phone] Potassium 4.8 mmol/L 3.6-5.2 Chloride 106 mmol/L 97-110 Carbon Dioxide 29 mmol/L 23-32 Glucose 86 mg/dL 70-105 BUN 12 mg/dL 6-22 Creatinine 0.8 mg/dL 0.5-1.3 BUN/CR 15 Ratio Calcium 9.4 mg/dL 8.6-10.2 Total Protein 7.4 g/dL 5.8-7.8 Albumin 4.2 g/dL 3.5-4.8 Globulin 3.2 g/dL 2.0-3.5 A/G Ratio 1.3 Ratio 1.0-2.2 Total Bilirubin 1.0 mg/dL 0.3-1.2 61 Alkaline Phosphatase 60 U/L 24-140 Alt 12 U/L 5-45 Ast 20 U/L 12-40 Anion Gap 13 mmol/L 8-16 GFR Calculation > 60 mL/min 60-175 62 GFR For > 60 mL/min 60-175 63 CBC With Auto Diff 04/16/2010 [facility] (Do not Use) WBC 6.0 K/ul 4.0- 10.9 [facility] [place] [address] [phone] RBC 4.53 M/ul 4.20-5.40 Hemoglobin 14.6 GM/dl 12.5-16.0 Hematocrit 42.2 % 36.0-47.0 MCV 93.2 FL 80.0-97.0 MCH 32.2 pg High 27.0-31.0 MCHC 34.6 g/dL 32.0-36.0 RDW 13.2 % 11.5-14.5 Platelet Count 268 K/ul 140-440 Neutrophils 58.9 % 50-70 Lymphocytes 25.6 % 20-44 Monocytes 12.5 % High 2-9 Eosinophil 2.5 % 0-4 Basophil 0.5 % 0-2 Absolute Neutrophils 3.5 K/ul 2.05-7.63 Absolute Lymphocytes 1.5 K/ul 0.8-4.8 Absolute Monocytes 0.7 K/ul 0.1-1.0 Absolute Eosinophils 0.1 K/ul 0.1-0.5 Absolute Basophils 0.0 K/ul 0.0-0.3 Hematology Comment (Comm2) N/A PT With Inr -LA 04/16/2010 [facility] (Do not Use) Protime-LA 10.2 SEC 8.8-11.1 [address] [place] [address] [phone] Inr-LA 0.98 Low 2.0-3.0 65 PTT -RL 04/16/2010 [facility] (Do not Use) Aptt-LA N/A SEC 22.2-34.2 [place] [address] [phone] Aptt-LA 27.6 SEC 22.1-31.5 66 CBC With Auto Diff 01/07/2009 [facility] (Do not Use) WBC 4.9 K/ul 4.0- 10.9 [address] [place] [address] [phone] RBC 4.23 M/ul 4.20-5.40 Hemoglobin 13.4 GM/dl 12.5-16.0 Hematocrit 38.4 % 36.0-47.0 MCV 90.7 FL 80.0-97.0 MCH 31.7 pg High 27.0-31.0 MCHC 35.0 g/dL 32.0-36.0 RDW 12.9 % 11.5-14.5 Platelet Count 255 K/ul 140-440 Neutrophils 48.8 % Low 50-70 Lymphocytes 33.4 % 20-44 Monocytes 13.5 % High 2-9 Eosinophil 3.6 % 0-4 Basophil 0.7 % 0-2 Absolute Neutrophils 2.4 K/ul 2.05-7.63 Absolute Lymphocytes 1.6 K/ul 0.8-4.8 Absolute Monocytes 0.7 K/ul 0.1-1.0 Absolute Eosinophils 0.2 K/ul 0.1-0.5 Absolute Basophils 0.0 K/ul 0.0-0.3 Hematology Comment (Comm2) N/A Laboratory test finding 01/07/2009 [facility] (Do not Use) Esr 17 MM/HR 0-20 [place] [address] [phone] Kristin Screen Neg CPK 32 U/L Low 38-234 Hepatic Liver 01/07/2009 [facility] (Do not Use) Total Protein 6.8 g/dL 5.8-7.8 [place] [address] [phone] Albumin 3.9 g/dL 3.5-4.8 Total Bilirubin 0.6 mg/dL 0.3-1.2 Direct Bilirubin 0.1 mg/dL 0.0-0.5 Alkaline Phosphatase 58 U/L 24-140 Alt 13 U/L 4-45 Ast 18 U/L 12-40 Laboratory test 01/07/2009 [facility] (Do not Use) Vitamin D, 25 32 ng/mL 31-100 finding [facility] [place] [address] [phone] Rheumatoid Factor -Quant. RESULT LESS THAN <SEE NOTE> IU/mL 68 CBC With Auto Diff 06/11/2008 [facility] (Do not Use) WBC 4.7 K/ul 4.0- 10.9 [address] [place] [address] [phone] RBC 4.07 M/ul Low 4.20-5.40 Hemoglobin 13.1 GM/dl 12.5-16.0 Hematocrit 37.2 % 36.0-47.0 MCV 91.4 FL 80.0-97.0 MCH 32.2 pg High 27.0-31.0 MCHC 35.2 g/dL 32.0-36.0 RDW 13.1 % 11.5-14.5 Platelet Count 273 K/ul 140-440 Neutrophils 57.1 % 50-70 Lymphocytes 27.8 % 20-44 Monocytes 11.3 % High 2-9 Eosinophil 2.4 % 0-4 Basophil 1.4 % 0-2 Absolute Neutrophils 2.7 K/ul 2.05-7.63 Absolute Lymphocytes 1.3 K/ul 0.8-4.8 Absolute Monocytes 0.5 K/ul 0.1-1.0 Absolute Eosinophils 0.1 K/ul 0.1-0.5 Absolute Basophils 0.1 K/ul 0.0-0.3 Laboratory test 06/11/2008 [facility] (Do not Use) Vitamin D, 25 32 ng/mL 19-58 finding [facility] [place] [address] [phone] Vitamin B12 594 pg/mL 180-914 Ferritin 174.3 ng/ml 11-306 Laboratory test 06/11/2008 [facility] (Do not Use) Lyme Igm/Igg NEGATIVE (Neg) 70 finding [facility] [place] [address] [phone] Laboratory test 06/11/2008 [facility] (Do not Use) Hiv1 AB Eia-LA NEGATIVE (Neg) 71 finding [facility] [place] [address] [phone] Lipid Panel 05/07/2008 [facility] (Do not Use) Cholesterol 210 mg/dL High 50-199 [place] [address] [phone] Triglycerides 163 mg/dL High 10-150 HDL 55 mg/dL 35-85 72 Chol/HDL Ratio 3.8 Ratio 73 VLDL 33 mg/dL LDL (Calc) 122 mg/dL 20-129 74 CBC With Auto Diff 05/07/2008 [facility] (Do not Use) WBC 4.8 K/ul 4.0- 10.9 [facility] [place] [address] [phone] RBC 4.24 M/ul 4.20-5.40 Hemoglobin 13.5 GM/dl 12.5-16.0 Hematocrit 38.8 % 36.0-47.0 MCV 91.6 FL 80.0-97.0 MCH 31.8 pg High 27.0-31.0 MCHC 34.7 g/dL 32.0-36.0 RDW 12.8 % 11.5-14.5 Platelet Count 252 K/ul 140-440 Neutrophils 50.2 % 50-70 Lymphocytes 32.5 % 20-44 Monocytes 12.2 % High 2-9 Eosinophil 4.5 % High 0-4 Basophil 0.6 % 0-2 Absolute Neutrophils 2.4 K/ul 2.05-7.63 Absolute Lymphocytes 1.6 K/ul 0.8-4.8 Absolute Monocytes 0.6 K/ul 0.1-1.0 Absolute Eosinophils 0.2 K/ul 0.1-0.5 Absolute Basophils 0.0 K/ul Low 0.1-0.3 Laboratory test 05/07/2008 [facility] (Do not Use) TSH 2.12 uIU/ml 0.34 -5.60 [place] [address] [phone] Mumps/Measles/Ru 02/12/2008 [facility] (Do not Use) Rubella Igg 21.9 IU/ mL 75 [facility] [place] [address] [phone] Measles Igg AB-LA 2.95 ELFA 76 Mumps Igg Immune-LA 1.03 ELFA 77 Laboratory test 06/14/2007 [facility] (Do not Use) CA 125 8.9 U/ml 0.0- 35.0 78 [place] [address] [phone] Esr 9 MM/HR 0-20 Rheumatoid Factor -Quant. RESULT LESS THAN <SEE NOTE> IU/mL 79 Enteric Pathogen 05/11/2007 [facility] (Do not Use) Specimen Description N /A Cult (Stool) -LA [facility] [place] [address] [phone] Special Requests - LA N/A Result - LA N/A Report Status - LA N/A Celiac Disease 05/09/2007 [facility] (Do not Use) Gliadin Igg-LA <10 U/ML (<45) 80 [place] [address] [phone] Gliadin Iga-LA 28 U/ML 0-44.999 81 Transglutaminase Antibody-LA 0.0 units 82 Transglutaminase Igg Antibody-LA 1 units 83 Iga - LA 297 mg/dL 71-374 Food Allergy Panel 03/23/2007 [facility] (Do not Use) Peanut (F13) 0 CLASS 84 [place] [address] [phone] Soybean (F14) 5 CLASS Milk (F2) 0 CLASS [place] (F20) 2 CLASS Shrimp (F24) 2 CLASS Egg,Whole (F245) 0 CLASS Tomato (F25) 1 CLASS Wheat (F4) 0 CLASS Chocolate (F52) 0/1 CLASS [place] (F8) 0 CLASS Laboratory test 03/23/2007 [facility] (Do not Use) Vitamin D, 25 38 ng/mL 19-58 finding [facility] [place] [address] [phone] Lipid Panel 03/23/2007 [facility] (Do not Use) Cholesterol 205 mg/dL High 50-199 [place] [address] [phone] Triglycerides 74 mg/dL 10-150 HDL 51 mg/dL 35-85 Chol/HDL Ratio 4.0 Ratio VLDL 15 mg/dL LDL (Calc) 139 mg/dL High 20-129 Laboratory test 03/23/2007 [facility] (Do not Use) TSH 1.54 uIU/ml 0.34 -5.60 [place] [address] [phone] CMP 03/23/2007 [facility] (Do not Use) Sodium 140 mmol/L 135-144 [place] [address] [phone] Potassium 4.6 mmol/L 3.6-5.2 Chloride 104 mmol/L 97-110 Carbon Dioxide 29 mmol/L 23-33 Glucose 82 mg/dL 70-105 BUN 9 mg/dL 6-22 Creatinine 0.9 mg/dL 0.5-1.3 BUN/CR 10 Ratio Low 12.0-20.0 Calcium 9.4 mg/dL 8.6-10.2 Total Protein 7.5 g/dL 5.8-7.8 Albumin 4.5 g/dL 3.5-4.8 Globulin 3.0 g/dL 2.0-3.5 A/G Ratio 1.5 Ratio 1.0-2.2 Total Bilirubin 0.8 mg/dL 0.3-1.2 Alkaline Phosphatase 61 U/L 24-140 Alt 14 U/L 4-45 Ast 17 U/L 12-40 Anion Gap 12 mmol/L 8-16 GFR Calculation > 60 mL/min 85 GFR For > 60 mL/min 86 CBC With Auto Diff 03/23/2007 [facility] (Do not Use) WBC 4.4 K/ul 4.0- 10.9 [place] [address] [phone] RBC 4.45 M/ul 4.20-5.40 Hemoglobin 14.0 GM/dl 12.5-16.0 Hematocrit 41.1 % 36.0-47.0 MCV 92.4 FL 80.0-97.0 MCH 31.6 pg High 27.0-31.0 MCHC 34.2 g/dL 32.0-36.0 RDW 11.7 % 11.5-14.5 Platelet Count 292 K/ul 140-440 Neutrophils 55.2 % 50-70 Lymphocytes 30.3 % 20-44 Monocytes 11.2 % High 2-9 Eosinophil 2.4 % 0-4 Basophil 0.9 % 0-2 Absolute Neutrophils 2.5 K/ul 2.05-7.63 Absolute Lymphocytes 1.3 K/ul 0.8-4.8 Absolute Monocytes 0.5 K/ul 0.1-1.0 Absolute Eosinophils 0.1 K/ul 0.1-0.5 Absolute Basophils 0.0 K/ul Low 0.1-0.3 CBC With Auto Diff 03/03/2006 [facility] (Do not Use) WBC 5.7 K/ul 4.0- 10.9 87 [facility] [place] [address] [phone] RBC 4.51 M/ul 4.20-5.40 Hemoglobin 14.5 GM/dl 12.5-16.0 Hematocrit 41.5 % 36.0-47.0 MCV 92.0 FL 80.0-97.0 MCH 32.2 pg High 27.0-31.0 MCHC 35.0 g/dL 32.0-36.0 RDW 11.6 % 11.5-14.5 Platelet Count 309 K/ul 140-440 Neutrophils 57.6 % 50-70 Lymphocytes 25.5 % 20-44 Monocytes 12.6 % High 2-9 Eosinophil 3.2 % 0-4 Basophil 1.1 % 0-2 Absolute Neutrophils 3.2 K/ul 2.05-7.63 Absolute Lymphocytes 1.5 K/ul 0.8-4.8 Absolute Monocytes 0.7 K/ul 0.1-1.0 Absolute Eosinophils 0.2 K/ul 0.1-0.5 Absolute Basophils 0.1 K/ul 0.1-0.3 Basic (BMP) 03/03/2006 [facility] (Do not Use) Sodium 139 mmol/L 135- 144 [facility] [place] [address] [phone] Potassium 4.9 mmol/L 3.6-5.2 Chloride 103 mmol/L 97-110 Carbon Dioxide 28 mmol/L 23-33 Glucose 85 mg/dL 70-105 BUN 9 mg/dL 6-22 Creatinine 0.9 mg/dL 0.5-1.3 BUN/CR 10 Ratio Low 12.0-20.0 Anion Gap 13 mmol/L 8-16 Calcium 9.4 mg/dL 8.6-10.2 GFR White Male 97 GFR White Female 72 GFR Black Male 118 GFR Black Female 87 GFR Guidelines 0 88 Laboratory test 03/03/2006 [facility] (Do not Use) TSH 1.85 uIU/ml 0.50 -6.00 finding [facility] [place] [address] [phone] Lipid Panel 03/03/2006 [facility] (Do not Use) Cholesterol 212 mg/dL High 50-199 [facility] [place] [address] [phone] Triglycerides 96 mg/dL 10-150 HDL 57 mg/dL 35-85 Chol/HDL Ratio 3.7 Ratio VLDL 19 mg/dL LDL (Calc) 136 mg/dL High 20-129 CBC 12/29/2004 [facility] (Do not Use) WBC 5.8 K/ul 4.1-10.9 [facility] [place] [address] [phone] RBC 4.54 M/ul 4.20-6.30 Hemoglobin 14.3 GM/dl 12.5-15.0 Hematocrit 41.5 % 37.0-51.0 MCV 91.4 FL 80.0-97.0 MCH 31.5 pg 26.0-32.0 MCHC 34.5 g/dL 31.0-36.0 RDW 12.0 % 11.5-14.5 Platelet Count 275 K/ul 140-440 Neutrophils 61.9 % 50-70 Lymphocytes 22.0 % 20-44 Monocytes 11.2 % High 2-9 Eosinophil 3.5 % 0-4 Basophil 1.4 % 0-2 Absolute Neutrophils 3.6 K/ul 2.05-7.63 Absolute Lymphocytes 1.3 K/ul 0.8-4.8 Absolute Monocytes 0.6 K/ul 0.1-1.0 Absolute Eosinophils 0.2 K/ul 0.1-0.5 Absolute Basophils 0.1 K/ul 0.1-0.3 Laboratory test 12/29/2004 [facility] (Do not Use) TSH 2.06 uIU/ml 0.50 -6.00 finding [facility] [place] [address] [phone] Basic (BMP) 12/29/2004 [facility] (Do not Use) Sodium 142 mmol/L 135- 145 [facility] [place], [place] [address] [phone] Potassium 4.3 mmol/L 3.4-5.3 Chloride 105 mmol/L 98-111 Carbon Dioxide 29 mmol/L 22-33 Glucose 83 mg/dL 70-105 BUN 8 mg/dL 6-26 Creatinine 0.7 mg/dL 0.5-1.5 BUN/CR 11 Ratio Low 12.0-20.0 Anion Gap 12 mmol/L 10-20 Calcium 9.6 mg/dL 8.6-10.3 Lipid Panel 12/29/2004 [facility] (Do not Use) Cholesterol 208 mg/dL High 50-199 [facility] [place] [address] [phone] Triglycerides 102 mg/dL 30-200 HDL 55 mg/dL 35-85 Chol/HDL Ratio 3.8 Ratio VLDL 20 mg/dL LDL (Calc) 133 mg/dL High 20-129 John-Randhawa Acute 12/03/2003 [facility] (Do not Use) Ebv Early SEE REFERENCE 89 AB Panel [facility] Antigen,IgG LA <SEE NOTE> [place] [address] [phone] Ebv Nuclear Antigen AB,IgG SEE REFERENCE LA <SEE NOTE> AU 90 John Randhawa Capsid Igg SEE REFERENCE LA <SEE NOTE> AU 91 John Randhawa Capsid Igm SEE REFERENCE LA <SEE NOTE> AU 92 Ebv AB Vca, Igm 59 AU 93 [facility] Early Antigen ,Igg POSITIVE 94 Ebv AB Vca, Igg 151 AU 95 Ebv Nuclear Ag AB. Igg 41 AU 96 CBC 12/03/2003 [facility] (Do not Use) WBC 8.0 K/ul 4.1-10.9 [facility] [place] [address] [phone] RBC 4.23 M/ul 4.20-6.30 Hemoglobin 13.5 GM/dl 12.5-15.0 Hematocrit 38.6 % 37.0-51.0 MCV 91.3 FL 80.0-97.0 MCH 32.0 pg 26.0-32.0 MCHC 35.1 g/dL 31.0-36.0 RDW 11.5 % 11.5-14.5 Platelet Count 254 K/ul 140-440 Neutrophils 54.1 % 50-70 Lymphocytes 20.8 % 20-44 Monocytes 14.1 % High 2-9 Eosinophil 9.0 % High 0-4 Basophil 2.0 % 0-2 Absolute Neutrophils 4.3 K/ul 2.05-7.63 Absolute Lymphocytes 1.7 K/ul 0.8-4.8 Absolute Monocytes 1.1 K/ul High 0.1-1.0 Absolute Eosinophils 0.7 K/ul High 0.1-0.5 Absolute Basophils 0.2 K/ul 0.1-0.3 CBC 07/05/2003 [facility] (Do not Use) WBC 5.0 K/ul 4.1-10.9 [facility] [place] [address] [phone] RBC 4.24 M/ul 4.20-6.30 Hemoglobin 13.4 GM/dl 12.5-15.0 Hematocrit 39.3 % 37.0-51.0 MCV 92.6 FL 80.0-97.0 MCH 31.5 pg 26.0-32.0 MCHC 34.0 g/dL 31.0-36.0 RDW 11.7 % 11.5-14.5 Platelet Count 232 K/ul 140-440 Neutrophils 52.8 % 50-70 Lymphocytes 26.8 % 20-44 Monocytes 13.3 % High 2-9 Eosinophil 5.8 % High 0-4 Basophil 1.3 % 0-2 Absolute Neutrophils 2.6 K/ul 2.05-7.63 Absolute Lymphocytes 1.3 K/ul 0.8-4.8 Absolute Monocytes 0.7 K/ul 0.1-1.0 Absolute Eosinophils 0.3 K/ul 0.1-0.5 Absolute Basophils 0.1 K/ul 0.1-0.3 John-Randhawa Acute 07/05/2003 [facility] (Do not Use) Ebv Early SEE REFERENCE 97 AB Panel [facility] Antigen,IgG LA <SEE NOTE> [place] [address] [phone] Ebv Nuclear Antigen AB,IgG SEE REFERENCE LA <SEE NOTE> AU 98 John Randhawa Capsid Igg SEE REFERENCE LA <SEE NOTE> AU 99 John Randhawa Capsid Igm SEE REFERENCE LA <SEE NOTE> AU 100 Interpretation SEE REFERENCE LA <SEE NOTE> 101 Laboratory test finding 03/13/2003 [facility] (Do not Use) Esr 20 MM/HR 0-20 [place] [address] [phone] Rheumatoid Factor Screen NEGATIVE Laboratory test finding 01/19/2002 [facility] (Do not Use) Esr 13 MM/HR 0-20 [place] [address] [phone] Magnesium 2.1 mg/dL 1.6-2.3 Kristin Screen NEGATIVE Laboratory test 01/09/2002 [facility] (Do not Use) Esr 20 MM/HR 0-20 [place] [address] [phone] CBC 01/09/2002 [facility] (Do not Use) WBC 5.4 K/ul 4.1-10.9 [place] [address] [phone] RBC 4.74 M/ul 4.2-6.3 Hemoglobin 14.9 GM/dl 12.0-16.0 Hematocrit 42.9 % 37.0-51.0 MCV 90.5 FL 80-97 MCH 31.4 pg 26.0-32.0 MCHC 34.7 g/dL 31.0-36.0 RDW 11.4 % Low 11.5-14.5 Platelet Count 309 K/ul 140-440 Neutrophils 62.6 % 50-70 Lymphocytes 22.8 % 20-44 Monocytes 9.8 % High 2-9 Eosinophil 4.0 % 0-4 Basophil 0.8 % 0-2 Absolute Neutrophils 3.5 K/ul 2.05-7.63 Absolute Lymphocytes 1.2 K/ul 0.8-4.8 Absolute Monocytes 0.5 K/ul 0.1-1.0 Absolute Eosinophils 0.2 K/ul 0.1-0.5 Absolute Basophils 0.0 K/ul Low 0.1-0.3 CMP 01/09/2002 [facility] (Do not Use) Sodium 141 mmol/L 137-145 [place] [address] [phone] Potassium 4.2 mmol/L 3.6-5.0 Chloride 100 mmol/L 98-107 Carbon Dioxide 29 mmol/L 22-30 Glucose 74 mg/dL 65-105 BUN 12 mg/dL 7-18 Creatinine, Serum 0.9 mg/dL 0.7-1.2 BUN/CR Ratio 13.7 Ratio 12-20 Calcium 9.7 mg/dL 8.7-10.5 Total Protein 8.1 g/dL 6.3-8.2 Albumin 4.2 g/dL 3.5-5.0 Globulin 3.9 g/dL 2.7-4.3 A/G Ratio 1.1 1.0-2.2 Total Bilirubin 0.3 mg/dL 0.2-1.3 Ast 22 U/L 14-36 Alt 9 U/L 9-52 Alkaline Phosphatase 50 U/L 38-126 CBC 12/12/2001 [facility] (Do not Use) WBC 4.6 K/ul 4.1-10.9 [facility] [place] [place] [address] [phone] RBC 4.51 M/ul 4.2-6.3 Hemoglobin 14.1 GM/dl 12.0-16.0 Hematocrit 41.1 % 37.0-51.0 MCV 91.1 FL 80-97 MCH 31.1 pg 26.0-32.0 MCHC 34.2 g/dL 31.0-36.0 RDW 12.0 % 11.5-14.5 Platelet Count 352 K/ul 140-440 Neutrophils 49.8 % Low 50-70 Lymphocytes 30.6 % 20-44 Monocytes 11.5 % High 2-9 Eosinophil 7.1 % High 0-4 Basophil 1.0 % 0-2 Absolute Neutrophils 2.4 K/ul 2.05-7.63 Absolute Lymphocytes 1.4 K/ul 0.8-4.8 Absolute Monocytes 0.5 K/ul 0.1-1.0 Absolute Eosinophils 0.3 K/ul 0.1-0.5 Absolute Basophils 0.0 K/ul Low 0.1-0.3 Laboratory test 12/12/2001 [facility] (Do not Use) TSH 1.74 uIU/ml 0.47 -6.90 finding [facility] [place] [address] [phone] Basic (BMP) 12/12/2001 [facility] (Do not Use) Sodium 142 mmol/L 137- 145 [facility] [place] [place] [address] [phone] Potassium 4.3 mmol/L 3.6-5.0 Chloride 103 mmol/L 98-107 Carbon Dioxide 28 mmol/L 22-30 Glucose 90 mg/dL 65-105 BUN 11 mg/dL 7-18 Creatinine, Serum 0.8 mg/dL 0.7-1.2 BUN/CR Ratio 12.8 Ratio 12-20 Anion Gap 16 mmol/L 10-20 Calcium 9.3 mg/dL 8.7-10.5 1 A Negative serologic test for Lyme Disease indicates no serologic evidence of infection with B burgdorferi at the time this specimen was collected. A repeat specimen should be collected in 2 to 4 weeks if clinically indicated. Unless otherwise specified, testing performed by [facility] [address] [place] [id number] 2 Updated reference range on new analyzer 3 Updated reference range on new analyzer 4 Concerning GFR Guidelines for Americans: Normal function or mild renal disease, if clinically at risk: >/=60 mL/min Moderately decreased: 30-59 Severely decreased: 15-29 Renal failure: <15 5 Concerning GFR Guidelines: Normal function or mild renal disease, if clinically at risk: >/=60 mL/min Moderately decreased: 30-59 Severely decreased: 15-29 Renal failure: <15 Glomerular Filtration Rate (GFR) is estimated based on the MDRD equation, which assumes a steady state for creatinine as recommended by the National Kidney Disease Education Program in conjunction with the National Institutes of Health and the National Kidney Foundation. Clinical conditions in which it may be necessary to measure GFR by using clearance methods include extremes of age and body size, severe malnutrition or obesity, diseases of skeletal muscle, paraplegia or quadriplegia, vegetarian diet, rapidly changing kidney function, and calculation of the dose of potentially toxic drugs that are excreted by the kidneys. 6 Updated Reference Range 7 Per NCEP ATP III Guidelines: Results lower than 40 mg/dL are suggestive of increased risk for coronary artery disease. Results > or=to 60 mg/dL are considered a negative risk factor. 8 Per NCEP ATP III Guidelines: Normal Population <130 Patients with medical conditions: CHD/DM Optimal: <100 Borderline high: 130-159 High: 160-189 Very high: >189 9 Clinical Guidelines for recommended serum 25(OH)Vitamin D Deficient at less than 20 ng/mL Insufficient at 20 to <30 ng/mL Sufficient at 30-100 ng/mL Toxicity at greater than 100 ng/mL 10 This sample is drawn by:[facility]. 11 Updated reference range on new analyzer 12 Updated reference range on new analyzer 13 Concerning GFR Guidelines for Americans: Normal function or mild renal disease, if clinically at risk: >/=60 mL/min Moderately decreased: 30-59 Severely decreased: 15-29 Renal failure: <15 14 Concerning GFR Guidelines: Normal function or mild renal disease, if clinically at risk: >/=60 mL/min Moderately decreased: 30-59 Severely decreased: 15-29 Renal failure: <15 Glomerular Filtration Rate (GFR) is estimated based on the MDRD equation, which assumes a steady state for creatinine as recommended by the National Kidney Disease Education Program in conjunction with the National Institutes of Health and the National Kidney Foundation. Clinical conditions in which it may be necessary to measure GFR by using clearance methods include extremes of age and body size, severe malnutrition or obesity, diseases of skeletal muscle, paraplegia or quadriplegia, vegetarian diet, rapidly changing kidney function, and calculation of the dose of potentially toxic drugs that are excreted by the kidneys. 15 Updated reference range on new analyzer 16 Per NCEP ATP III Guidelines: Results lower than 40 mg/dL are suggestive of increased risk for coronary artery disease. Results > or=to 60 mg/dL are considered a negative risk factor. 17 Per NCEP ATP III Guidelines: Normal Population <130 Patients with medical conditions: CHD/DM Optimal: <100 Borderline high: 130-159 High: 160-189 Very high: >189 18 Concerning GFR Guidelines for Americans: Normal function or mild renal disease, if clinically at risk: >/=60 mL/min Moderately decreased: 30-59 Severely decreased: 15-29 Renal failure: <15 19 Concerning GFR Guidelines: Normal function or mild renal disease, if clinically at risk: >/=60 mL/min Moderately decreased: 30-59 Severely decreased: 15-29 Renal failure: <15 Glomerular Filtration Rate (GFR) is estimated based on the MDRD equation, which assumes a steady state for creatinine as recommended by the National Kidney Disease Education Program in conjunction with the National Institutes of Health and the National Kidney Foundation. Clinical conditions in which it may be necessary to measure GFR by using clearance methods include extremes of age and body size, severe malnutrition or obesity, diseases of skeletal muscle, paraplegia or quadriplegia, vegetarian diet, rapidly changing kidney function, and calculation of the dose of potentially toxic drugs that are excreted by the kidneys. 20 Per NCEP ATP III Guidelines: Results lower than 40 mg/dL are suggestive of increased risk for coronary artery disease. Results > or=to 60 mg/dL are considered a negative risk factor. 21 Per NCEP ATP III Guidelines: Normal Population <130 Patients with medical conditions: CHD/DM Optimal: <100 Borderline high: 130-159 High: 160-189 Very high: >189 22 Per NCEP ATP III Guidelines: Results lower than 40 mg/dL are suggestive of increased risk for coronary artery disease. Results > or=to 60 mg/dL are considered a negative risk factor. 23 Per NCEP ATP III Guidelines: Normal Population <130 Patients with medical conditions: CHD/DM Optimal: <100 Borderline high: 130-159 High: 160-189 Very high: >189 24 This sample is drawn by:SHELBI 25 Concerning GFR Guidelines for Americans: Normal function or mild renal disease, if clinically at risk: >/=60 mL/min Moderately decreased: 30-59 Severely decreased: 15-29 Renal failure: <15 26 Concerning GFR Guidelines: Normal function or mild renal disease, if clinically at risk: >/=60 mL/min Moderately decreased: 30-59 Severely decreased: 15-29 Renal failure: <15 Glomerular Filtration Rate (GFR) is estimated based on the MDRD equation, which assumes a steady state for creatinine as recommended by the National Kidney Disease Education Program in conjunction with the National Institutes of Health and the National Kidney Foundation. Clinical conditions in which it may be necessary to measure GFR by using clearance methods include extremes of age and body size, severe malnutrition or obesity, diseases of skeletal muscle, paraplegia or quadriplegia, vegetarian diet, rapidly changing kidney function, and calculation of the dose of potentially toxic drugs that are excreted by the kidneys. 27 Per NCEP ATP III Guidelines: Results lower than 40 mg/dL are suggestive of increased risk for coronary artery disease. Results > or=to 60 mg/dL are considered a negative risk factor. 28 Per NCEP ATP III Guidelines: Normal Population <130 Patients with medical conditions: CHD/DM Optimal: <100 Borderline high: 130-159 High: 160-189 Very high: >189 29 This sample is drawn by:BR [employer] hours 30 Per NCEP ATP III Guidelines: Results lower than 40 mg/dL are suggestive of increased risk for coronary artery disease. Results > or=to 60 mg/dL are considered a negative risk factor. 31 Per NCEP ATP III Guidelines: Normal Population <130 Patients with medical conditions: CHD/DM Optimal: <100 Borderline high: 130-159 High: 160-189 Very high: >189 32 Concerning GFR Guidelines for Americans: Normal function or mild renal disease, if clinically at risk: >/=60 mL/min Moderately decreased: 30-59 Severely decreased: 15-29 Renal failure: <15 33 Concerning GFR Guidelines: Normal function or mild renal disease, if clinically at risk: >/=60 mL/min Moderately decreased: 30-59 Severely decreased: 15-29 Renal failure: <15 Glomerular Filtration Rate (GFR) is estimated based on the MDRD equation, which assumes a steady state for creatinine as recommended by the National Kidney Disease Education Program in conjunction with the National Institutes of Health and the National Kidney Foundation. Clinical conditions in which it may be necessary to measure GFR by using clearance methods include extremes of age and body size, severe malnutrition or obesity, diseases of skeletal muscle, paraplegia or quadriplegia, vegetarian diet, rapidly changing kidney function, and calculation of the dose of potentially toxic drugs that are excreted by the kidneys. 34 Per NCEP ATP III Guidelines: Results lower than 40 mg/dL are suggestive of increased risk for coronary artery disease. Results > or=to 60 mg/dL are considered a negative risk factor. 35 Per NCEP ATP III Guidelines: Normal Population <130 Patients with medical conditions: CHD/DM Optimal: <100 Borderline high: 130-159 High: 160-189 Very high: >189 36 This sample is drawn by:CLIFF 37 Reference range: 0 to 19 Unit: Units INTERPRETIVE INFORMATION: Cyclic Citrullinated Peptide Antibody, IgG 19 Units or less ................... Negative 20-39 Units ........................ Weak Positive 40-59 Units ........................ Moderate Positive 60 Units or greater ................ Strong Positive Anti-cyclic citrullinated peptide (anti-CCP), IgG antibodies are present in about 69-83 percent of patients with rheumatoid arthritis (RA) and have specificities of 93-95 percent. These autoantibodies may be present in the preclinical phase of disease, are associated with future RA development, and may predict radiographic joint destruction. Patients with weak positive results should be monitored and testing repeated. Performed by [facility] [employer], [address] [place] [id number] [email or web address], Rosa Agee MD, Lab. Director Unless otherwise specified, testing performed by [facility] [place] [address] 38 Unless otherwise specified, testing performed by [facility] [place] [address] 39 This sample is drawn by:NB. 40 Concerning GFR Guidelines for Americans: Normal function or mild renal disease, if clinically at risk: >/=60 mL/min Moderately decreased: 30-59 Severely decreased: 15-29 Renal failure: <15 41 Concerning GFR Guidelines: Normal function or mild renal disease, if clinically at risk: >/=60 mL/min Moderately decreased: 30-59 Severely decreased: 15-29 Renal failure: <15 Glomerular Filtration Rate (GFR) is estimated based on the MDRD equation, which assumes a steady state for creatinine as recommended by the National Kidney Disease Education Program in conjunction with the National Institutes of Health and the National Kidney Foundation. Clinical conditions in which it may be necessary to measure GFR by using clearance methods include extremes of age and body size, severe malnutrition or obesity, diseases of skeletal muscle, paraplegia or quadriplegia, vegetarian diet, rapidly changing kidney function, and calculation of the dose of potentially toxic drugs that are excreted by the kidneys. 42 Per NCEP ATP III Guidelines: Results lower than 40 mg/dL are suggestive of increased risk for coronary artery disease. Results > or=to 60 mg/dL are considered a negative risk factor. 43 Per NCEP ATP III Guidelines: Optimal: <100 Near optimal: 100-129 Borderline high: 130-159 High: 160-189 Very high: >189 44 Desirable: <130 Borderline High: 130-159 High: 160-189 Very high: 190 or greater 45 This sample is drawn by:CT 46 Concerning GFR Guidelines for Americans: Normal function or mild renal disease, if clinically at risk: >/=60 mL/min Moderately decreased: 30-59 Severely decreased: 15-29 Renal failure: <15 47 Concerning GFR Guidelines: Normal function or mild renal disease, if clinically at risk: >/=60 mL/min Moderately decreased: 30-59 Severely decreased: 15-29 Renal failure: <15 Glomerular Filtration Rate (GFR) is estimated based on the MDRD equation, which assumes a steady state for creatinine as recommended by the National Kidney Disease Education Program in conjunction with the National Institutes of Health and the National Kidney Foundation. Clinical conditions in which it may be necessary to measure GFR by using clearance methods include extremes of age and body size, severe malnutrition or obesity, diseases of skeletal muscle, paraplegia or quadriplegia, vegetarian diet, rapidly changing kidney function, and calculation of the dose of potentially toxic drugs that are excreted by the kidneys. 48 Per NCEP ATP III Guidelines: Results lower than 40 mg/dL are suggestive of increased risk for coronary artery disease. Results > or=to 60 mg/dL are considered a negative risk factor. 49 Per NCEP ATP III Guidelines: Optimal: <100 Near optimal: 100-129 Borderline high: 130-159 High: 160-189 Very high: >189 50 This sample is drawn by:MM 51 This sample is drawn by:CT 52 This sample is drawn by:MM 53 FASTING This sample is drawn by:MM 54 PER NCEP ATP III GUIDELINES: RESULTS LOWER THAN 40 MG/DL ARE SUGGESTIVE OF INCREASED RISK FOR CORONARY ARTERY DISEASE. RESULTS > OR=TO 60 MG/DL ARE CONSIDERED A NEGATIVE RISK FACTOR. 55 PER NCEP ATP III GUIDELINES: OPTIMAL: <100 NEAR OPTIMAL: 100 - 129 BORDERLINE HIGH: 130 - 159 HIGH: 160 - 189 VERY HIGH: >189 56 INTERPRETATION OF CHOL-HDL RATIO CHD RISK FEMALE MALE VERY HIGH >8.3 >14.3 HIGH 5.6 - 8.3 6.7 - 14.3 AVERAGE 3.7 - 5.6 4.0 - 6.7 BELOW AVERAGE 2.5 - 3.7 2.7 - 4.0 PROTECTED <2.5 <2.7 57 FASTING 58 PER NCEP ATP III GUIDELINES: RESULTS LOWER THAN 40 MG/DL ARE SUGGESTIVE OF INCREASED RISK FOR CORONARY ARTERY DISEASE. RESULTS > OR=TO 60 MG/DL ARE CONSIDERED A NEGATIVE RISK FACTOR. 59 INTERPRETATION OF CHOL-HDL RATIO CHD RISK FEMALE MALE VERY HIGH >8.3 >14.3 HIGH 5.6 - 8.3 6.7 - 14.3 AVERAGE 3.7 - 5.6 4.0 - 6.7 BELOW AVERAGE 2.5 - 3.7 2.7 - 4.0 PROTECTED <2.5 <2.7 60 PER NCEP ATP III GUIDELINES: OPTIMAL: <100 NEAR OPTIMAL: 100 - 129 BORDERLINE HIGH: 130 - 159 HIGH: 160 - 189 VERY HIGH: >189 61 The difference between the most recent result of 0.6 and the current result of 1.0 exceeds the absolute delta value of 0.3 as defined for this test. 62 Concerning GFR GUIDELINES: Normal Function or Mild Renal Disease, if clinically at risk: >/=60mL/min Moderately decreased: 30-59 Severely decreased: 15-29 Renal Failure: <15 Glomerular Filtration Rate (GFR) is estimated based on the MDRD equation, which assumes a steady state for creatinine as recommended by the National Kidney Disease Education Program in conjunction with the National Institutes of Health and the National Kidney Foundation. Clinical conditions in which it may be necessary to measure GFR by using clearance methods include extremes of age and body size, severe malnutrition or obesity, diseases of skeletal muscle, paraplegia or quadriplegia, vegetarian diet, rapidly changing kidney function, and calculation of the dose of potentially toxic drugs that are excreted by the kidneys. 63 Concerning GFR GUIDELINES: Normal Function or Mild Renal Disease, if clinically at risk: >/=60mL/min Moderately decreased: 30-59 Severely decreased: 15-29 Renal Failure: <15 64 FASTING This sample is drawn by:PASTOR 65 SUGGESTED THERAPEUTIC RANGES USING INR FOR STABILIZED ANTICOAGULATED PATIENTS: STANDARD DOSE THERAPY INR 2.0-3.0 DVT, PE, PREVENT DVT OR EMBOLISM HIGH DOSE THERAPY INR 2.5-3.5 PREVENT EMBOLISM FROM MECHANICAL HEART VALVE Unless otherwise specified, testing [place] [address] 66 Unless otherwise specified, testing [place] [address] 67 This sample is drawn by: JANETT 68 RESULT LESS THAN 20 IU/ml 69 FASTING 70 A Negative serologic test for Lyme Disease indicates no serologic evidence of infection with B burgdorferi at the time this specimen was collected. A repeat specimen should be collected in 2 to 4 weeks if clinically indicated. Unless otherwise specified, testing performed [place] [address] 71 THIS INFORMATION HAS BEEN DISCLOSED TO YOU FROM CONFIDENTIAL RECORDS WHICH ARE PROTECTED BY STATE LAW. STATE LAW PROHIBITS YOU FROM MAKING ANY FURTHER DISCLOSURE OF THIS INFORMATION WITHOUT THE SPECIFIC WRITTEN CONSENT OF THE PERSON TO WHOM IT PERTAINS, OR OTHERWISE PERMITTED BY LAW. 72 PER NCEP ATP III GUIDELINES: RESULTS LOWER THAN 40 MG/DL ARE SUGGESTIVE OF INCREASED RISK FOR CORONARY ARTERY DISEASE. RESULTS > OR=TO 60 MG/DL ARE CONSIDERED A NEGATIVE RISK FACTOR. 73 INTERPRETATION OF CHOL-HDL RATIO CHD RISK FEMALE MALE VERY HIGH >8.3 >14.3 HIGH 5.6 - 8.3 6.7 - 14.3 AVERAGE 3.7 - 5.6 4.0 - 6.7 BELOW AVERAGE 2.5 - 3.7 2.7 - 4.0 PROTECTED <2.5 <2.7 74 PER NCEP ATP III GUIDELINES: OPTIMAL <100 NEAR OPTIMAL 100 - 129 BORDERLINE HIGH 130 - 159 HIGH 160 - 189 VERY HIGH >189 75 RUBELLA INTERPRETATION: NEGATIVE <10.0 IU/ML BORDERLINE 10.0 - 14.9 IU/ML POSITIVE > OR=15.0 IU/ML VALUES OF 15.0 IU/ML OR GREATER INDICATE IMMUNIZATION OR PAST INFECTION. BORDERLINE RESULTS ARE CONFIRMED. THE MAGNITUDE OF THE REPORTED IGG LEVEL CANNOT BE CORRELATED TO AN ENDPOINT TITER. 76 MEASLES INTERPRETATION: NEGATIVE <0.50 ELFA UNITS BORDERLINE 0.50 - 0.69 ELFA UNITS LOW LEVEL 0.70 - 1.90 ELFA UNITS MED. LEVEL 1.91 - 2.70 ELFA UNITS HIGH LEVEL >2.70 ELFA UNITS VALUES OF 0.70 OR GREATER INDICATE IMMUNIZATION OR PAST INFECTION. BORDERLINE RESULTS ARE CONFIRMED IN DUPLICATE. 77 MUMPS INTERPRETATION: NEGATIVE <0.35 ELFA UNITS BORDERLINE 0.35 - 0.49 ELFA UNITS POSITIVE >=0.50 ELFA UNITS VALUES OF 0.50 OR GREATER INDICATE IMMUNIZATION OR PAST INFECTION. BORDERLINE RESULTS ARE CONFIRMED IN DUPLICATE. MUMPS INTERPRETATION: NEGATIVE <0.35 ELFA UNITS BORDERLINE 0.35-0.49 ELFA UNITS POSITIVE >=0.50 ELFA UNITS VALUES OF 0.50 OR GREATER INDICATE IMMUNIZATION OR PAST INFECTION. BORDERLINE RESULTS ARE CONFIRMED IN DUPLICATE. 78 BEGINNING 12/12/06 CA125 VALUES ASSAYED AT [employer] [facility] USES AN EIA METHODOLOGY MANUFACTURED BY [employer] FOR USE ON THE DXI ANALYZER. VALUES OBTAINED WITH DIFFERENT ASSAY METHODS OR KITS CAN NOT BE USED INTERCHANGEABLY. SERUM CA125 MEASUREMENT IS NOT AN ABSOLUTE TEST FOR MALIGNANCY. THE CA125 VALUE SHOULD BE USED IN CONJUNCTION WITH INFORMATION AVAILABLE FROM CLINICAL EVALUATION AND OTHER DIAGNOSTIC PROCEDURES. 79 RESULT LESS THAN 20 IU/ml 80 INTERPRETATION OF RESULT < 45 U/ML NEGATIVE 45-55 U/ML EQUIVOCAL FOR PRESENCE OF ANTIBODY. > 55 U/ML POSITIVE 81 INTERPRETATION OF RESULT < 45 U/ML NEGATIVE 45-55 U/ML EQUIVOCAL FOR PRESENCE OF ANTIBODY. > 55 U/ML POSITIVE 82 Unit: AU REFERENCE INTERVAL: Tissue Transglutaminase Antibody, IgA AGE Negative Positive 0-1 year Less than 5.0 AU 5.0 AU or greater 2 years and older Less than 7.0 AU 7.0 AU or greater Performed by [facility] [employer], [address] [place] [id number] [email or web address], Haroon Omer MD - Lab. Director 83 Unit: EU REFERENCE INTERVAL: Tissue Transglutaminase Ab, IgG Less than 20 EU ......... None Detected 20 - 30 EU .............. Weakly Positive Greater than 30 EU ...... Positive The tTG IgG assay may aid in the diagnosis of gluten- sensitivity enteropathy (i.e., celiac disease, dermatitis herpetiformis) in tTG IgA negative patients with confirmed IgA deficiency. A negative tTG IgG test alone does not rule out gluten-sensitive enteropathy. Performed by [facility] [employer], [address] [place] [id number] [email or web address], Haroon Omer MD - Lab. Director 84 please fax copy to dr Rosa ([facility] ) In [place].FASTING FASTING FASTING FASTING FASTING 85 Concerning GFR GUIDELINES: Normal Function or Mild Renal Disease, if clinically at risk: >/=60mL/min Moderately decreased: 30-59 Severely decreased: 15-29 Renal Failure: <15 Glomerular Filtration Rate (GFR) is estimated based on the MDRD equation, which assumes a steady state for creatinine as recommended by the National Kidney Disease Education Program in conjunction with the National Institutes of Health and the National Kidney Foundation. Clinical conditions in which it may be necessary to measure GFR by using clearance methods include extremes of age and body size, severe malnutrition or obesity, diseases of skeletal muscle, paraplegia or quadriplegia, vegetarian diet, rapidly changing kidney function, and calculation of the dose of potentially toxic drugs that are excreted by the kidneys. 86 Concerning GFR GUIDELINES: Normal Function or Mild Renal Disease, if clinically at risk: >/=60mL/min Moderately decreased: 30-59 Severely decreased: 15-29 Renal Failure: <15 87 FASTING 88 Normal Function or Mild Renal Disease, if clinically at risk: >/=60 mL/min Moderately decreased: 30-59 Severely decreased: 15-29 Renal Failure: <15 Glomerular Filtration Rate (GFR) is estimated based on the MDRD equation, which assumes a steady state for creatinine as recommended by the National Kidney Disease Education Program in conjunction with the National Institutes of Health and the National Kidney Foundation. Clinical conditions in which it may be necessary to measure GFR by using clearance methods include extremes of age and body size, severe malnutrition or obesity, diseases of skeletal muscle, paraplegia or quadriplegia, vegetarian diet, rapidly changing kidney function, and calculation of the dose of potentially toxic drugs that are excreted by the kidneys. 89 SEE REFERENCE LAB REPORT 90 SEE REFERENCE LAB REPORT 91 SEE REFERENCE LAB REPORT 92 SEE REFERENCE LAB REPORT 93 Negative < 20 AU Positive >or=20 AU *AU=Arbitrary Units . 94 (Positive results suggest Reference Interval recent or chronic-active Normal: Negative infection. Anti-EA becomes undetectable weeks to months after onset.) . 95 Negative < 20 AU Positive >or=20 AU *AU=Arbitrary Units . 96 Negative < 20 AU Positive >or=20 AU *AU=Arbitrary Units . 97 SEE REFERENCE LAB REPORT 98 SEE REFERENCE LAB REPORT 99 SEE REFERENCE LAB REPORT 100 SEE REFERENCE LAB REPORT 101 SEE REFERENCE LAB REPORT Procedures Date Code Description Status 06/22/2018 [id number] Mammogram Completed 05/22/2018 [id number] Electrocardiogram Complete Completed 05/23/2017 11769 Electrocardiogram Complete Completed 11/15/2016 [id number] Mammogram Completed 11/10/2015 [id number] Mammogram Completed 03/24/2015 13837 Electrocardiogram Complete Completed 11/04/2014 [id number] Mammogram Completed 10/30/2013 [id number] Mammogram Completed 08/08/2013 33979 Airway Inhalation Treatment Completed 01/31/2013 [id number] Bone Mineral Density Test Completed 01/01/2013 64700 Electrocardiogram Complete Completed 10/24/2012 [id number] Mammogram Completed 10/26/2011 [id number] Mammogram Completed 03/26/2011 [id number] Mammogram Completed 05/21/2010 26159 ECHO Transthoracis 2D W Spectral Doppler Completed 05/01/2010 83348 ECHO Transthoracis 2D W Spectral Doppler Completed 04/27/2010 09532 Electrocardiogram Complete Completed 03/25/2010 [id number] Mammogram Completed 11/07/2009 Inject Tendon/Ligament/Cyst Completed 11/07/2009 Inject/Drain Joint/Bursa Intermediate Completed 08/15/2009 84741 Admin Of Inj (Therapeutic Phrophylactic Or Diagnostic Completed Subq Inj 02/13/2009 [id number] Mammogram Completed 01/15/2009 [id number] Mammogram Completed 12/17/2004 43456 Electrocardiogram Complete Completed 01/19/2002 02506 ECHO Complete W/O Spectral Or Color Doppler Completed 01/19/2002 94203 Doppler Echocardiography Complete Completed 01/19/2002 30453 Doppler Color Flow Velocity Mapping Completed 01/09/2002 33521 Electrocardiogram Complete Completed Encounters Type Date Location Provider Dx Diagnosis Office Visit 11/27/2018 Leena Stokes F33.1 Major depressive 4:45p MD [place] disorder, recurrent, moderate E55.9 Vitamin D deficiency, unspecified J45.20 Mild intermittent asthma, uncomplicated E78.2 Mixed hyperlipidemia R10.13 Epigastric pain Z28.3 Underimmunization status J30.1 Allergic rhinitis due to pollen Office Visit 10/18/2018 1:20p Jewell Crow, 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 Office Visit 05/22/2018 4:30p Leena Stokes Z00.00 Encntr for general MD [place] adult medical exam w/o abnormal findings Z12.31 Encntr screen mammogram for malignant neoplasm of breast F33.1 Major depressive disorder, recurrent, moderate E55.9 Vitamin D deficiency, unspecified J45.20 Mild intermittent asthma, uncomplicated E78.2 Mixed hyperlipidemia Z23 Encounter for immunization Office Visit 11/22/2017 4:00p Leena Stokes F33.1 Major depressive MD [place]imael disorder, recurrent, moderate E78.2 Mixed hyperlipidemia S43.421D Sprain of RIGHT rotator cuff capsule, subsequent encounter Z12.11 Encounter for screening for malignant neoplasm of colon E55.9 Vitamin D deficiency, unspecified R07.89 Other chest pain J45.20 Mild intermittent asthma, uncomplicated Office Visit 05/23/2017 4:00p Leena Stokes Z00.01 Encounter for MD [place]im[place] general adult medical exam w abnormal findings F33.1 Major depressive disorder, recurrent, moderate E55.9 Vitamin D deficiency, unspecified Z13.1 Encounter for screening for diabetes mellitus E78.2 Mixed hyperlipidemia Z12.31 Encntr screen mammogram for malignant neoplasm of breast J45.20 Mild intermittent asthma, uncomplicated M25.552 Pain in LEFT hip N64.4 Mastodynia Office Visit 11/22/2016 4:15p Leena Stokes F33.1 Major mode Varghese MD disorder, recurrent, moderate E55.9 Vitamin D deficiency, unspecified E78.2 Mixed hyperlipidemia J45.20 Mild intermittent asthma, uncomplicated S43.421D Sprain of RIGHT rotator cuff capsule, subsequent encounter Office Visit 04/12/2016 4:15p Leena Stokes Z00.00 Encntr for general MD Abimael adult medical exam w/o abnormal findings J30.1 Allergic rhinitis due to pollen F33.1 Major depressive disorder, recurrent, moderate Z12.11 Encounter for screening for malignant neoplasm of colon J45.20 Mild intermittent asthma, uncomplicated E55.9 Vitamin D deficiency, unspecified Office Visit 01/19/2016 4:00p Leena Stokes F33.1 Major depressive MD Abimael disorder, recurrent, moderate E78.0 Pure hypercholesterolemia J45.20 Mild intermittent asthma, uncomplicated J30.1 Allergic rhinitis due to pollen Office Visit 09/15/2015 4:15p Leena Stokes Z01.810 Encounter for MD Abimael preprocedural cardiovascular examination F33.1 Major depressive disorder, recurrent, moderate E78.0 Pure hypercholesterolemia J45.20 Mild intermittent asthma, uncomplicated Office Visit 03/24/2015 4:00p Leena Stokes MD V70.0 Exam ( Adult) General Medical Routine AT [facility] 296.32 Depressive Disorder Major Recurrent Moderate 356.8 Neuropathy Other Spec Idiopathic Peripheral V76.10 Screening For Malignant Neoplasm Breast V76.51 Special Screening For Malignant Neoplasms Colon 272.0 Hypercholesterolemia Pure 268.9 Vitamin D Deficiency Unspec 719.49 Pain Joint Multiple Sites 729.1 Myalgia & Myositis Unspec 477.0 Rhinitis Allergic Due To Pollen 723.1 Cervicalgia V82.81 Screening For Osteoporosis 727.43 Ganglion Unspec Office Visit 01/08/2015 8:40a Jewell Crow, 079.99 Viral Infection RN [employer] Unspec 386.11 Vertigo Benign Paroxysmal Position Office Visit 09/23/2014 4:30p Leena Stokes 296.32 Depressive Disorder MD Abimael Major Recurrent Moderate 719.41 Pain Joint Shoulder Region 272.0 Hypercholesterolemia Pure 564.00 Constipation Unspecified 616.10 Vaginitis & Vulvovaginitis Unspec Office Visit 03/25/2014 4:45p Leena Stokes 296.32 Depressive Disorder MD Abimael Major Recurrent Moderate 719.41 Pain Joint Shoulder Region 477.8 Rhinitis Allergic Due To Other Allergen 356.8 Neuropathy Other Spec Idiopathic Peripheral 272.0 Hypercholesterolemia Pure 268.9 Vitamin D Deficiency Unspec V73.89 Screening Examination Viral Diseases Other Spec Office Visit 10/22/2013 4:30p Leena Stokes 296.32 Depressive Disorder MD Abimael Major Recurrent Moderate 719.41 Pain Joint Shoulder Region 724.2 Lumbago 728.85 Spasm Muscle Office Visit 08/08/2013 2:40p Jewell Crow, RN MS 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 Cough 296.31 Depressive Disorder Major Recurrent Mild Office Visit 05/21/2013 4:30p Leena Stokes MD 729.5 Pain In Limb 296.32 Depressive Disorder Major Recurrent Moderate Office Visit 01/01/2013 3:30p Leena Stokes 719.49 Pain Joint Multiple MD Abimael Sites 296.32 Depressive Disorder Major Recurrent Moderate 729.1 Myalgia & Myositis Unspec 272.0 Hypercholesterolemia Pure V76.51 Special Screening For Malignant Neoplasms Colon V76.10 Screening For Malignant Neoplasm Breast 794.31 Electrocardiogram (ECG) (EKG) Abnormal V82.81 Screening For Osteoporosis V70.0 Exam (Adult) General Medical Routine AT Health Care Facility 477.8 Rhinitis Allergic Due To Other Allergen Office Visit 12/11/2012 4:15p Leena Stokes 296.32 Depressive Disorder MD Abimael Major Recurrent Moderate 729.1 Myalgia & Myositis Unspec 780.79 Malaise And Fatigue Other Office Visit 08/07/2012 4:15p Leena Stokes 296.32 Depressive Disorder MD Abimael Major Recurrent Moderate Office Visit 06/26/2012 4:30p Leena Stokes 296.32 Depressive Disorder MD Abimael Major Recurrent Moderate 726.31 Epicondylitis Medial Office Visit 04/24/2012 2:45p Leena Stokes 726.31 Epicondylitis Medial MD Abimael 354.2 Lesion Ulnar Nerve Office Visit 02/21/2012 3:45p Leena Stokes 296.32 Depressive Disorder MD Abimael Major Recurrent Moderate 780.52 Sleep Disturbance, Insomnia Unspecified 611.79 Breast Signs & Symptoms Other 268.9 Vitamin D Deficiency Unspec 782.3 Edema Office Visit 10/01/2011 2:45p Leena Stokes 296.32 Depressive Disorder MD Abimael Major Recurrent Moderate 268.9 Vitamin D Deficiency Unspec Office Visit 08/17/2011 9:40a Jewell Crow, 079.99 Viral Infection RN MS FRONT END LOADER OPERATOR Unspec Office Visit 03/22/2011 6:00p Leena Stokes 268.9 Vitamin D Deficiency MD Abimael Unspec 296.32 Depressive Disorder Major Recurrent Moderate 723.1 Cervicalgia 477.0 Rhinitis Allergic Due To Pollen Office Visit 02/01/2011 5:45p Leena Stokes 296.32 Depressive Disorder MD Abimael Major Recurrent Moderate 780.79 Malaise And Fatigue Other 287.2 Purpuras Nonthrombocytopenic Other Office Visit 09/28/2010 6:00p Leena Stokes 296.32 Depressive Disorder MD Abimael Major Recurrent Moderate 627.2 Menopausal Or Female Climacteric State, Symptomatic 272.0 Hypercholesterolemia Pure Office Visit 09/15/2010 2:00p Jewell Crow, 462 Pharyngitis Acute RN MS FRONT END LOADER OPERATOR Office Visit 05/19/2010 3:00p Leena Stokes 682.8 Cellulitis & Abscess MD Abimael Other Spec Sites Office Visit 04/27/2010 5:30p Leena Stokes 296.32 Depressive Disorder MD Abimael Major Recurrent Moderate 627.2 Menopausal Or Female Climacteric State, Symptomatic 272.2 Hyperlipidemia Mixed 780.4 Dizziness & Giddiness 794.31 Electrocardiogram (ECG) (EKG) Abnormal Office Visit 02/09/2010 6:45p Leena Stokes 726.32 Epicondylitis Lateral MD Abimael 296.32 Depressive Disorder Major Recurrent Moderate Office Visit 11/07/2009 11:15a Leena Stokes 726.32 Epicondylitis Eric Varghese MD Office Visit 10/07/2009 3:30p Leena Stokes 726.32 Epicondylitis Eric Varghese MD Office Visit 08/15/2009 2:45p Leena Stokes 009.0 Infectious Colitis MD Abimael Enteritis & Gastroenteritis Office Visit 02/04/2009 3:00p Jewell Crow 729.1 Myalgia & Myositis C, RN MS FRONT END LOADER OPERATOR Unspec Office Visit 01/07/2009 2:15p Jewell Crow 780.79 Malaise And Fatigue C, RN MS FRONT END LOADER OPERATOR Other 729.5 Pain In Limb Office Visit 05/22/2008 2:30p Jorje Herrera, 053.9 Herpes Zoster W/O MD Complication Office Visit 05/01/2008 8:45a Jewell Crow, V70.0 Exam (Adult ) General RN MS FRONT END LOADER OPERATOR Medical Routine AT Health Care Facility 296.31 Depressive Disorder Major Recurrent Mild V58.69 Medications Fdc (Current) Use Encounter Office Visit 09/14/2007 8:00a Jewell Crow RN 719.46 Pain Joint Lower MS FRONT END LOADER OPERATOR Leg 719.42 Pain Joint Upper Arm 719.44 Pain Joint Hand V15.05 Allergy To Other Foods Office Visit 06/14/2007 8:00a Jewell Crow RN MS FRONT END LOADER OPERATOR 787.91 Diarrhea 296.31 Depressive Disorder Major Recurrent Mild 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 Office Visit 05/09/2007 8:45a Jewell Crow, 296.31 Depressive Disorder RN MS FRONT END LOADER OPERATOR Major Recurrent Mild 296.99 Episodic Mood Disorder NEC 787.91 Diarrhea Office Visit 03/23/2007 8:15a Jewell Crow, V70.0 Exam (Adult ) General RN MS FR[employer] END LOADER OPERATOR Medical Routine AT Health Care Facility 780.79 Malaise And Fatigue Other Office Visit 03/03/2006 8:15a Jewell Crow, 477.9 Rhinitis Allergic RN MS FRONT END LOADER OPERATOR Cause Unspec 493.00 Asthma Extrinsic Unspecified V70.0 Exam (Adult) General Medical Routine AT Health Care Facility Office Visit 12/17/2004 8:20a Jewell Crow, 780.79 Malaise And Fatigue RN MS FRONT END LOADER OPERATOR Other V70.0 Exam (Adult) General Medical Routine AT Health Care Facility Office Visit 08/06/2003 3:40p Jewell Crow, RN MS FRONT END LOADER OPERATOR 729.5 Pain In Limb 493.00 Asthma Extrinsic Unspecified Office Visit 03/13/2003 2:00p Jewell Crow, RN MS 457.1 Lymphedema Other FRONT END LOADER OPERATOR 780.79 Malaise And Fatigue Other Office Visit 06/07/2002 8:00a Jewell Crow, 729.1 Myalgia & Myositis RN MS FRONT END LOADER OPERATOR Unspec Office Visit 05/04/2002 9:00a Jewell Crow, 079.99 Viral Infection RN MS FRONT END LOADER OPERATOR Unspec 780.79 Malaise And Fatigue Other 724.2 Lumbago 784.0 Headache Office Visit 03/05/2002 8:00a Jewell Crow, 511.0 Pleurisy W/ O Mention Of RN MS FRONT END LOADER OPERATOR Effusion Or Current Tuberculosis Office Visit 02/01/2002 11:50a Leena Stokes 075 Mononucleosis MD Abimael Infectious Office Visit 01/19/2002 11:40a Leena Stokes 780.6 Fever MD Abimael Office Visit 01/09/2002 8:30a Jewell Crow, 780.6 Fever RN MS FRONT END LOADER OPERATOR Office Visit 12/12/2001 8:00a Jewell Crow, 462 Pharyngitis Acute RN MS FRONT END LOADER OPERATOR 780.79 Malaise And Fatigue Other 780.6 Fever Office Visit 03/02/2001 1:00p Krystyna Dinh RN A.N.P. Office Visit 09/20/2000 8:50a Krystyna Dinh, RN 382.00 Otitis Media A.N.P. Suppurative Acute Office Visit 05/23/2000 1:20p Krystyna Dinh RN 462 Pharyngitis Acute A.N.P. Plan of Treatment 11/27/2018 - Leena Banerjee MDF33.1 Major depressive disorder, recurrent, moderateFollow up:6 mos as EV/PEE55.9 Vitamin D deficiency, lwkhsqjakwyK90.20 Mild intermittent asthma, uncomplicatedNew Medication: Albuterol Sulfate HFA 108(90 Base) mcg/Act - 2 puffs use three times a day as qqcsuyE66.2 Mixed lojiiorbdfrbebE44.13 Epigastric painZ28.3 Underimmunization statusNew Labs:CBC with Auto Diff-fcmg, Ordered: 11/27/18Hepatitis B S Ag-RL, Ordered: 11/27/18Hep B Core AB Total-RL, Ordered: 11/27/18Hep B S AB Quant-RL, Ordered: 11/27/18Esr-FCMG, Ordered: 11/27/18Vitamin B12, Ordered: Amylase, Ordered: 11/27/18Lipase, Ordered: 11/27/18Lipid Treatment, Ordered: 11/27/18Vit D 25Oh, Ordered: 11/27/18J30.1 Allergic rhinitis due to pollenNew Medication:Desloratadine 5 mg - take 1 tablet by mouth every day for allergy symptoms
[2018-12-03] MEDS ORDERED: NS 0.9% 1000 ML** 1,000 ML IV ONE (13:55)
--- NOTE | 2018-12-03 14:04 | ED ---
Abdominal Pain/Female - HPI Summary HPI Summary: 58 year old F presenting to [facility] accompanied by Ed with a chief complaint of consistent epigastric pain that does not radiate since mid- September 2018, worse since 12/01/18. The patient rates the pain 8/10 in severity. Symptoms aggravated by eating, but not specifically fatty foods. Symptoms alleviated by nothing. Patient reports decreased appetite, vomiting, and nausea. Patient denies dizziness, hemetemesis or melena throughout her complaints of pain. No prior abdominal surgeries. No prior gallbladder studies or endoscopies. Several weeks ago, patient noticed grape size mass protruding from her epigastric area. She had an appointment with Dr. Missy Dixon, osteopath, who thought that patient had "hiatal hernia". Patient said that Dr. Dixon pulled and pushed the mass out of way and pt no longer felt the grape sized mass. Patient saw Dr. Leena Banerjee, her primary care provider, on 11/27/18. Dr. Banerjee wanted to follow patient's pain before treating empirically, or ordering further tests, per pt. Patient scheduled bloodwork for 12/07/18. On , patient's pain was more severe. She had decreased appetite and was only able to eat bland floods. On 12/02/18, patient had dinner at 18:30 and vomited undigested food at 21:30. She denies coffee ground emesis or hemetemesis with this vomiting episode. This morning, patient woke up with severe pain. The last meal patient had was Cheerios and rice milk at 08:15. Patient felt nauseous after this. Vital signs while in room: HR 81 bpm, BP 105/70. - History of Current Complaint Chief Complaint: EDAbdPain Stated Complaint: UPPER ABD PAIN Time Seen by Provider: 12/03/18 13:38 Hx Obtained From: Patient Hx Last Menstrual Period: post menopausal Onset/Duration: Lasting Weeks - since mid-September 2018, Still Present, Worse Since - 12/01/18 Timing: Constant Severity Initially: Moderate Severity Currently: Severe Pain Intensity: 8 Pain Scale Used: 0-10 Numeric Location: Epigastric Radiates: No Character: Sharp Aggravating Factor(s): Nothing Alleviating Factor(s): Nothing Associated Signs and Symptoms: Positive: Negative - hemetemesis,coffee ground emesis, dark stool, dizziness, Other: - decreased appetite, vomiting, and nausea Allergies/Adverse Reactions: Allergies Allergy/AdvReac Type Severity Reaction Status Date / Time cephalexin [From Keflex] Allergy Difficulty Verified 12/03/18 15:42 Breathing diazepam [From Valium] Allergy See Comment Verified 12/03/18 15:42 gluten Allergy Swelling Verified 12/03/18 15:42 latex Allergy Rash Verified 12/03/18 15:42 soy Allergy GI Upset Verified 12/03/18 15:42 PMH/Surg Hx/FS Hx/Imm Hx Previously Healthy: No Endocrine/Hematology History: Denies: Hx Diabetes, Hx Thyroid Disease Cardiovascular History: Denies: Hx Hypertension, Hx Pacemaker/ICD Respiratory History: Reports: Hx Asthma Denies: Hx Chronic Obstructive Pulmonary Disease (COPD) GI History: Reports: Hx Hiatal Hernia - per Missy Dixon DO, "reduced" Denies: Hx Ulcer History: Denies: Hx Renal Disease Musculoskeletal History: Denies: Hx Rheumatoid Arthritis Sensory History: Reports: Hx Contacts or Glasses Denies: Hx Hearing Aid Opthamlomology History: Reports: Hx Contacts or Glasses Psychiatric History: Denies: Hx Panic Disorder - Surgical History Surgery Procedure, Year, and Place: left breast biopsy - benign. tubal ligation. hysterectomy. RIGHT SHOULDER TORN LABRUM REPAIR 09/2015 Infectious Disease History: No Infectious Disease History: Denies: Hx Clostridium Difficile, Hx Hepatitis, Hx Human Immunodeficiency Virus (HIV), Hx of Known/Suspected MRSA, Hx Shingles, Hx Tuberculosis, Traveled Outside the [place] in Last 30 Days - Family History Known Family History: Positive: Other - father had pancreatic cancer - Social History Lives: With Family Alcohol Use: Daily Hx Substance Use: No Substance Use Type: Reports: None Hx Tobacco Use: No Smoking Status (MU): Never Smoked Tobacco Review of Systems Constitutional: Negative Cardiovascular: Negative Respiratory: Negative Gastrointestinal: Negative - hemetemesis, coffee ground emesis, bloody or black stool Positive: Abdominal Pain, Vomiting, Nausea, Other - constant epigastric pain that does not radiate, decreased appetite Positive: no symptoms reported Musculoskeletal: Negative Skin: Negative Neurological: Negative - Dizziness Psychological: Normal All Other Systems Reviewed And Are Negative: Yes Physical Exam - Summary Physical Exam Summary: Appearance: Well-appearing, moderate pain distress, well-nourished Skin: Warm, color reflects adequate perfusion, dry Head: Normal Head/Face inspection, atraumatic Eyes: Conjunctiva clear ENT: Normal inspection Neck: Supple, no nodes, no JVD Respiratory: Lungs clear, normal breath sounds, no respiratory distress Cardio: RRR, No murmur, pulses normal, brisk capillary refill Abdomen: Soft, nondistended, no guarding, no rebound, no masses. Patient has marked epigastric pain upon palpation that persists after palpation. No hernia noted. No definite RUQ tenderness. Bowel sounds: Present Musculoskeletal: Strength Intact/ROM intact, no calf tenderness, no edema. Psychological: Normal Neuro: Alert, muscle tone normal, no focal deficit Triage Information Reviewed: Yes Vital Signs On Initial Exam: Initial Vitals Temp Pulse Resp BP Pulse Ox 97.8 F 74 16 107/71 100 12/03/18 12:24 12/03/18 12:24 12/03/18 12:24 12/03/18 12:24 12/03/18 12:24 Vital Signs Reviewed: Yes Diagnostics - Vital Signs Vital Signs Temp Pulse Resp BP Pulse Ox 12/03/18 13:46 68 99 12/03/18 13:44 70 125/89 100 12/03/18 12:24 97.8 F 74 16 107/71 100 - Laboratory Result Diagrams: 12/03/18 14:28 12/03/18 14:28 Lab Statement: Any lab studies that have been ordered have been reviewed, and results considered in the medical decision making process. - Radiology CXR Radiology Interpretation Completed By: Radiologist Summary of Radiographic Findings: no acute cardiopulmonary disease - Ultrasound No standard instances Ultrasound Interpretation Completed By: Radiologist Summary of Ultrasound Findings: Gallbladder US shows NO ACUTE SONOGRAPHIC PATHOLOGY OF THE VISUALIZED PORTION OF THE ABDOMEN. ED physician has reviewed this report. - EKG 1411 Cardiac Rate: NL - 66 BPM EKG Rhythm: Sinus Rhythm ST Segment: Non-Specific Ectopy: None EKG Comparison: Other - No prior to compare to Summary of EKG Findings: 1st degree AV block, normal IVCT, normal QTc, normal axis, poor R wave progression V1-V3, no acute changes Re-Evaluation - Re-Evaluation First Eval Re-Evaluation Time: 17:08 Comment: Patient was given results of her US. No vomiting in ED. Declines pain medication. Discussed disposition plan. She is agreeable to discharge. Abdominal Pain Fem Course/Dx - Course Course Of Treatment: Reviewed nurses note. Patient medications reviewed this visit. Allergies noted. Bloodwork and urinanalysis was unremarkable. EKG shows SR, first degree AV block, and no acute changes. CXR showed no acute cardiopulmonary disease. US showed NO ACUTE SONOGRAPHIC PATHOLOGY OF THE VISUALIZED PORTION OF THE ABDOMEN. In ED course, patient was given IV fluids. Patient will be discharged with prescription for omeprazole if she wishes to try it, and instructions to follow up with Dr. Banerjee this week. She was advised to get an upper endoscopy if Dr. Banerjee concurs. She was told to return to the emergency department for new or worsening symptoms. Patient and family are agreeable to this plan. - Diagnoses Differential Diagnosis: Positive: ACS, Gall Bladder Disease, Hepatitis, Pancreatitis, Peptic Ulcer Disease Provider Diagnoses: Epigastric pain Discharge - Sign-Out/Discharge Documenting (check all that apply): Patient Departure - Discharge Patient Received Moderate/Deep Sedation with Procedure: No - Discharge Plan Condition: Stable Disposition: HOME Prescriptions: Omeprazole CAP (NF) [Prilosec CAP* 20 MG] 20 mg PO DAILY #30 cap. Patient Education Materials: Epigastric Pain (ED) Referrals: Leena Banerjee MD [Primary Care Provider] - 2 Days Additional Instructions: Your labs, urine and ultrasound did not show any serious abnormalities today. It will be safe for you to travel. You may want to try an acid reducing drug. 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 Have definite follow up with Dr. Banerjee this week. You will ultimately need an upper endoscopy. Return to the emergency department for new or worsening symptoms - Billing Disposition and Condition Condition: STABLE Disposition: Home - Attestation Statements Document Initiated by Spohia: Yes Documenting Scribe: Yandy Humphrey Provider For Whom Sophia is Documenting (Include Credential): Mary Gasca MD Scribe Attestation: Yandy Ortiz, scribed for Mary Gasca MD on 12/06/18 at 2048. Scribe Documentation Reviewed: Yes Provider Attestation: The documentation as recorded by the Yandy webber accurately reflects the service I personally performed and the decisions made by me, Mary Gasca MD Status of Scribe Document: Viewed
[2018-12-03 14:37] LABS: ABS Basophils 0.1 10^3/ul (0-0.2); ABS Eosinophils 0.1 10^3/ul (0-0.6); ABS Lymphocytes 1.7 10^3/ul (1.0-4.8); ABS Monocytes 0.7 10^3/ul (0-0.8); ABS Neutrophils 3.4 10^3/ul (1.5-7.7); ABS Nucleated RBC 0 10^3/ul; Eosinophil % 1.8 %; Hematocrit 39 % (35-47); Hemoglobin 13.6 g/dl (12.0-16.0); Lymphocyte % 27.6 %; Mean Corpuscular HGB Conc 35 g/dl (31-36); Mean Corpuscular Hemoglobin 32 pg (27-31); Mean Corpuscular Volume 91 fL (80-97); Mean Platelet Volume 6.4 fL (7.4-10.4); Nucleated Red Blood Cells % 0; Platelet Count 291 10^3/ul (150-450); Red Blood Count 4.33 10^6/ul (4.00-5.40); Red Cell Distribution Width 13 % (10.5-15)
[2018-12-03 14:44] LABS: Activated Partial Thrombo Time 28.8 seconds (26.0-36.3); INR 0.96 (0.77-1.02)
[2018-12-03 14:53] LABS: Albumin 4.3 g/dL (3.2-5.2); Albumin/Globulin Ratio 1.5 (1-3); BUN/Creatinine Ratio 13.3 (8-20); C Reactive Protein 2.27 mg/L (<8.01); Calcium 9.8 mg/dL (8.6-10.3); EGFR Non-African American 71.1 (>60); Globulin 2.8 g/dL (2-4); Magnesium 2.1 mg/dL (1.9-2.7); Potassium 3.9 mmol/L (3.5-5.0); Total Bilirubin 0.4 mg/dL (0.2-1.0); Total Protein 7.1 g/dL (6.4-8.9)
[2018-12-03 15:52] LABS: Urine Appearance Clear; Urine Bilirubin Negative (Negative); Urine Blood Negative (Negative); Urine Color Straw; Urine Glucose Negative (Negative); Urine Ketones Negative (Negative); Urine Nitrite Negative (Negative); Urine Protein Negative (Negative); Urine Specific Gravity 1.004 (1.010-1.030); Urine Urobilinogen Negative (Negative)
[2018-12-03 17:53] VITALS: BP 102/75
== END 2018-12-03 17:53 | disposition home or self-care (01) ==
LOC: ED 12:24
DX: R10.13 Epigastric pain (principal)
CPT/HCPCS: 36415; 71045; 76705; 80053; 81003; 82150; 82550; 83605; 83690; 83735; 84484; 85025; 85610; 85730; 86140; 93005; 96360; 96361; 99283